=== PATIENT | female | born 1970 | race African-American/Black ===

== ENCOUNTER 2016-12-14 14:30 | Observation (INO) | payer OTHER, SELFPAY ==
[2016-12-14 15:02] LABS: Hematocrit 37.2 % (36.0-47.0); Mean Platelet Volume 7.6 fL (7.4-10.4); Red Blood Cell (RBC) Count 5.08 mill/uL (4.20-5.40); White Blood Cell (WBC) Count 7.6 thou/uL (4.8-10.8)
--- NOTE | 2016-12-14 15:11 | RAD ---
PORTABLE CHEST 1 VIEW: Date: 12/14/16 Time: 1455 hours HISTORY: Chest pain. FINDINGS: Comparison made with exam of 09/14/16. The heart size is normal. The lungs are well expanded without focal areas of consolidation, pneumoth orax, or pleural effusions. IMPRESSION: No acute process. POS: [facility]
[2016-12-14 15:23] LABS: ALT (SGPT) 20 U/L (8-55); AST (SGOT) 17 U/L (5-34); Alkaline Phosphatase 63 U/L (40-150); Anion Gap 11 mmol/L (10-20); BUN (Urea Nitrogen) 8 mg/dL (7.0-18.7); Bilirubin, Total 0.4 mg/dL (0.2-1.2); CK (CPK) 226 U/L (29-168); Calc. Creatinine Clearance 0 mL/min (70-130); Calcium 9.3 mg/dL (7.8-10.44); Carbon Dioxide 25 mmol/L (22-29); Chloride 105 mmol/L (98-107); Estimated GFR-MDRD Greater than 90; Globulin 3.4 g/dL (2.4-3.5); Lipase 38 U/L (8-78); Protein, Total 7.2 g/dL (6.0-8.3)
[2016-12-14 15:24] LABS: #Eosinphils 0.2 thou/uL (0.0-0.7); #Lymphocytes 2.4 thou/uL (1.20-3.40); #Monocytes 0.6 thou/uL (0.11-0.59); #Neutrophils 4.4 thou/uL (1.40-6.50); %Basophils 0.5 % (0.0-1.0); %Eosinophils 2.7 % (0.0-10.0); %Monocytes 8.2 % (0.0-10.0); Anisocytosis SLIGHT = 6-15 cells (100X) (0-5/hpf); Hypochromia SLIGHT = 6-15 cells (100X) (0-5/hpf); Microcytosis SLIGHT = 6-15 cells (100X) (0-5/hpf)
[2016-12-14 15:25] LABS: Bilirubin Negative (Negative); Blood, Urine Trace (Negative); Glucose, Urine (Dipstick) Negative (Negative); Ketone, Urine Negative (Negative); Nitrite Negative (Negative); Protein, Urine (Dipstick) Negative (Neg-Trace); Urobilinogen 0.2 mg/dL (0.2-1.0)
[2016-12-14 15:28] LABS: Troponin I Less than 0.010 ng/mL (< 0.028)
[2016-12-14] MEDS ORDERED: Nitroglycerin 0.4 MG TAB (25 Tab Bottle) ONE (15:29)
[2016-12-14] MEDS ORDERED: Lidocaine 2% Viscous Solution 20 ML, Aluminum & Magnesium Hydroxide 30 ML, Donnatal Eli... SSW SCH ×3 (15:30)
[2016-12-14 15:39] LABS: RBC/HPF 0-3 HPF (0-3); WBC/HPF 0-3 HPF (0-3)
[2016-12-14 15:40] LABS: Bacteria/HPF 2+ HPF (None Seen); Hyaline Casts/LPF NONE SEEN LPF (0-3 Hyaline); Squamous Epithelial 0-3 HPF (0-3)
[2016-12-14] MEDS ORDERED: Mag-Al 1200 mg/1200 mg/30 ML UDCUP PO PRN (16:05)
[2016-12-14] MEDS ORDERED: Ondansetron HCl/PF 4 MG/2 ML Vial IVP PRN (16:05)
[2016-12-14] MEDS ORDERED: cloNIDine HCl 0.1 MG TAB PO PRN (16:05)
[2016-12-14] MEDS ORDERED: Lorazepam 1 MG TAB PO PRN (16:05)
[2016-12-14] MEDS ORDERED: Senokot 8.6 MG TAB PO PRN ×2 (16:05)
[2016-12-14] MEDS ORDERED: Benzonatate 100 MG CAP PO PRN (16:05)
[2016-12-14] MEDS ORDERED: Calcium Carbonate 500 MG ChewTAB PO PRN (16:05)
[2016-12-14] MEDS ORDERED: Diabetic Tussin 200 MG/10 ML UDCUP PO PRN (16:05)
[2016-12-14] MEDS ORDERED: Loratadine 10 MG TAB PO PRN (16:05)
[2016-12-14] MEDS ORDERED: Bisacodyl 5 MG TAB PO PRN ×2 (16:05)
[2016-12-14] MEDS ORDERED: Acetaminophen 325 MG TAB PO PRN (16:05)
[2016-12-14] MEDS ORDERED: Nitroglycerin 0.4 MG TAB (25 Tab Bottle) PO PRN (16:05)
[2016-12-14] MEDS ORDERED: Dextrose 50% Abboject 50 ML SYRINGE SLOW IVP PRN (16:10)
[2016-12-14] MEDS ORDERED: HumaLOG 300 UNITS/3 ML VIAL SC PRN ×2 (16:10)
[2016-12-14] MEDS ORDERED: Dextrose 5% in Water 1,000 ML IV PRN (16:10)
[2016-12-14 17:08] LABS: Iron 64 ug/dL (50-170)
[2016-12-14 17:32] VITALS: BMI 32.0
[2016-12-14 18:37] LABS: Troponin I 0.012 ng/mL (< 0.028)
--- NOTE | 2016-12-14 20:38 | HP ---
DATE OF ADMISSION: 12/14/2016 PRIMARY CARE PHYSICIAN: Denia Mauro NP CHIEF COMPLAINT: Chest pain for 1 month on and off. HISTORY OF PRESENT ILLNESS: Ms. Lipscomb is a pleasant 46-year-old -Mongolian female with pas t medical history of hypertension, dyslipidemia, and borderline diabetes who presented to the emerge ncy room with the above-mentioned complaint. History is mainly obtained by the patient herself and the electronic medical records have been reviewed. The patient was last seen in our facility 2 year s ago for similar complaints and underwent a nuclear medicine stress test which showed EF of 83% and no evidence of ischemia. Ms. Lipscomb reports that she has been having a sharp squeezing pain, 10/10 in intensity on and off for almost a month now. She cannot recall any exacerbating or relieving factors. It can come on at rest also. She has taken aspirin in the home for this without any benefit. It is associated with some dizziness and diaphoresis, but no shortness of breath or palpitations. It is located in the le ft anterior chest without any radiation. It is not associated with arm or jaw claudication. She de nies any recent travel. She denies any recent illnesses or trauma. She does report repeatedly bein g under significant stress. She just received report this morning that one of her aunts has less th an in 2 weeks to live. She reports that she has with a cardiac catheterization done in 2010, which was normal. She also reported that she had some kind of imaging done last year at work and was told that she has some plaque in the left side of her cardiac blood vessel. In the emergency room upon presentation, she was hemodynamically stable. Her initial cardiac enzyme s were normal. Her EKG was unremarkable with normal sinus rhythm and no acute ST or T-wave changes. She was given nitroglycerin as well as aspirin in the Emergency Room along with GI cocktail and is now being admitted for further workup for acute coronary syndrome rule out. The patient does report lot of heart burn. She is currently on any antacid at home. She denies any abdominal pain, hematochezia, or melena. She denies any dysuria, hematuria or frequency. She does reports some decreased urination in the last 4 or 3 days. The patient reports symptoms consistent with menopause with heavy bleeding intermittently with no bl eeding at all. She denies any chances of her being at this time. She has a followup appoi ntment with [facility] up coming in next few months. PAST MEDICAL HISTORY: 1. Hypertension. 2. Dyslipidemia. 3. Diet controlled diabetes mellitus. 4. History of asthma. PAST SURGICAL HISTORY: Tubal ligation and cardiac catheterization in 2010. FAMILY HISTORY: Significant for hypertension in the mother. One of her grandmother and two of her aunts have had coronary artery disease. SOCIAL HISTORY: She is and is at bedside. No history of drug, tobacco or alcohol a buse. ALLERGIES: CODEINE causes nausea and a rash. CURRENT MEDICATIONS: She takes aspirin 81 mg daily and blood pressure and cholesterol medication, but is unclear as to which CODE STATUS: FULL code. Discussed with the patient. REVIEW OF SYSTEMS: The following complete review of systems was negative, unless otherwise mentione d in the HPI or below: Constitutional: Weight loss or gain, ability to conduct usual activities. Skin: Rash, itching. Eyes: Double vision, pain. ENT/Mouth: Nose bleeding, neck stiffness, pain, tenderness. Cardiovascular: Palpitations, dyspnea on exertion, orthopnea. Respiratory: Shortness of breath, wheezing, cough, hemoptysis, fever or night sweats. Gastrointestinal: Poor appetite, abdominal pain, heartburn, nausea, vomiting, constipation, or diar janeth. Genitourinary: Urgency, frequency, dysuria, nocturia. Musculoskeletal: Pain, swelling. Neurologic/Psychiatric: Anxiety, depression. Allergy/Immunologic: Skin rash, bleeding tendency. LABORATORY DATA AND IMAGINGS: Her CBC shows WBCs at 7.6 with 57% neutrophils. Hemoglobin is 11.4 w ith a low MCV and MCH. Platelet count 306,000. D-dimer is less than 0.27. Serum chemistries unrem arkable except for creatinine kinase mildly elevated at 226. Cardiac enzymes negative x1. BNP norm al. Lipid panel and lipase are normal. Urinalysis showed trace leukocyte esterase and +2 bacteria. Chest x-ray by my review has no evidence of pleural effusion, edema or infiltrate. A 12-lead EKG by my review shows normal sinus rhythm without any acute ST or T-wave changes to suggest ACS. PHYSICAL EXAMINATION: VITAL SIGNS: Upon presentation include blood pressure 144/81, pulse of 62, saturating 100% on room air, respirations 17, temperature 98.5. GENERAL: In no acute distress, awake, alert, oriented x3. She is well-built and well dressed and v pauline pleasant. HEENT EXAMINATION: Mucous membrane is moist and pink. Head is normocephalic, atraumatic. Pupils e qual, reactive to light and accommodation. Extraocular muscles are intact. NECK: Supple without any lymphadenopathy, JVD or bruit. CHEST: Clear to auscultation without any wheezing, rales or rhonchi. CARDIOVASCULAR: Rate rhythm is regular without any murmur, rubs or gallops. She is nontender to pa lpation on the anterior chest. ABDOMEN: Slightly obese, soft, nontender, nondistended with positive bowel sounds. She does not cas[place] ve any right upper quadrant tenderness or flank tenderness. EXTREMITIES: Free of any cyanosis, clubbing, or edema. PSYCHIATRY EXAMINATION: She appears anxious at this time and easily tearful. NEUROLOGIC EXAMINATION: Nonfocal. SKIN: Free of any rashes or bruises. Feels warm and dry to touch. IMPRESSION AND PLAN: 1. Chest pain. The patient has multiple risk factors including family history of diabetes, hyperte nsion, and dyslipidemia. D-dimer has been negative, so pulmonary embolus possibility is very low; a lmost entirely ruled out. I think her symptoms are more consistent with heartburn along with the st ress. However, given the multiple risk factors, we will admit her overnight in the hospital and do serial cardiac enzymes and telemetry monitoring. We will repeat the stress test in the morning. I do not feel that this is unstable angina. We will give her a trial of proton pump inhibitor to see if the symptoms are improved. If her stress test is abnormal or if her chest pain does not go away: We will consider Cardiology consultation in the morning. 2. Urinary tract infection. The patient seems to be having early urinary tract infection and is mi ldly symptomatic. She will be treated with oral antibiotics and we will send the urine for culture. Test urine for also. 3. Iron deficiency anemia, most likely she is deficient in the iron with heavy perimenopausal sympt oms. We will check iron indices and start her on supplementation as necessary. 4. Dyslipidemia. Her lipid panel is pretty much normal today. She will continue to take her medic ations that she takes at home. 5. Hypertension. Blood pressure is under well control today. We will add p.r.n. antihypertensives and resume her home medications once confirmed. 6. Code status: FULL code. Discussed with the patient. 7. Add p.r.n. medication ordered and deep venous thrombosis and gastrointestinal prophylaxis. DISPOSITION: The patient is being admitted for ACS workup. She also seems to have early UTI. Furt her management will depend upon her clinical course.
[2016-12-14 21:27] LABS: Troponin I Less than 0.010 ng/mL (< 0.028)
[2016-12-15 05:51] LABS: #Eosinphils 0.2 thou/uL (0.0-0.7); #Lymphocytes 2.6 thou/uL (1.20-3.40); #Monocytes 0.5 thou/uL (0.11-0.59); #Neutrophils 3.7 thou/uL (1.40-6.50); %Basophils 0.5 % (0.0-1.0); %Eosinophils 2.6 % (0.0-10.0); %Lymphocytes 36.9 % (21.0-51.0); %Monocytes 7.3 % (0.0-10.0); Hematocrit 36.4 % (36.0-47.0); Mean Platelet Volume 8.7 fL (7.4-10.4); Red Blood Cell (RBC) Count 4.92 mill/uL (4.20-5.40)
[2016-12-15 06:16] LABS: Anion Gap 12 mmol/L (10-20); BUN (Urea Nitrogen) 9 mg/dL (7.0-18.7); Calc. Creatinine Clearance 125 mL/min (70-130); Carbon Dioxide 21 mmol/L (22-29); Chloride 107 mmol/L (98-107); Estimated GFR-MDRD Greater than 90
[2016-12-15] MEDS ORDERED: Enoxaparin Sodium 40 MG/0.4 ML SYRINGE SC SCH (09:00)
[2016-12-15] MEDS ORDERED: Aspirin 325 MG TAB PO SCH (09:00)
[2016-12-15] MEDS ORDERED: Lisinopril 5 MG TAB PO SCH (09:00)
--- NOTE | 2016-12-15 14:22 | DIS ---
DATE OF ADMISSION: 12/14/2016 DATE OF DISCHARGE: 12/15/2016 PRIMARY CARE PHYSICIAN: Denia Mauro, Family nurse practitioner. DISCHARGE DISPOSITION: Home. PRIMARY DISCHARGE DIAGNOSIS: Chest pain, ruled out acute coronary syndrome. SECONDARY DISCHARGE DIAGNOSES: Obesity with BMI 32, dyslipidemia, asthma. PRIMARY PROCEDURE/OPERATION: None. RADIOLOGICAL INVESTIGATION: Chest x-ray normal. Stress test negative for any ischemia. SIGNIFICANT LABORATORY DATA: WBC 7.0, hemoglobin 11.3, platelets 254. D-dimer less than 0.27. Sod ium 136, potassium 4.2, BUN 9, creatinine 0.69, calcium 9.0. Cardiac enzymes negative x3. LDL 94. Urinalysis: Leukocyte esterase trace. Urine culture negative. test negative. DISCHARGE MEDICATIONS: ProAir HFA 2 puffs q.6 hourly p.r.n., aspirin 81 mg p.o. daily, Lipitor 20 m g p.o. at bedtime, Pepcid 20 mg p.o. b.i.d. CONTRAINDICATIONS: None. CODE STATUS: FULL CODE. INPATIENT CONSULTANTS: None. ALLERGIES: CODEINE. DISCHARGE PLAN: Post hospital, the patient will follow up with primary care physician in 1 week. HOSPITAL COURSE: The patient is a 46-year-old female who was admitted by Dr. Carlton yesterday, ple ase see her H\T\P for further details. This patient came to the emergency room for chest pain for 1 month on and off. Based on her description, patient's chest pain was not cardiac in nature. There was concern of underlying acid reflux, but to rule out acute coronary syndrome, this patient was ad mitted to observation unit and we did serial cardiac enzyme and that were negative. Her EKG on admi ssion was also normal sinus rhythm without any ischemic changes. Her chest x-ray was normal. The p atient was admitted to telemetry floor and subsequent cardiac enzymes remained negative. Patient wa s also asymptomatic while in hospital. While in the hospital, her diabetes was also well controlled with diet. During this admission, blood pressure was running on the lower side and that is why hyd rochlorothiazide was advised to kept on hold and see primary care physician for further adjustment o f blood pressure medication. As we are suspecting acid reflux and that is why we are considering Pe pcid on discharge. Patient had suspected urinary tract infections and that is why levofloxacin was given, but as cultur es remain negative and patient does not have any further symptoms of UTI that is why antibiotic ther apy was not given. The patient is seen and examined today. All test results discussed with the patient in detail. The patient is medically stable for discharge. PHYSICAL EXAMINATION: VITAL SIGNS: Currently, temperature 98.0, pulse 67, respiratory rate 16, saturation 98%, blood pres sure 122/67, weight 175 pounds. GENERAL: The patient is currently alert, awake, no acute distress. HEAD: Normocephalic, atraumatic. LUNGS: Clear. CARDIAC: S1, S2 regular without any murmur. ABDOMEN: Soft and benign. EXTREMITIES: No edema. NEUROLOGIC: Nonfocal examination.
--- NOTE | 2016-12-15 14:38 | NM ---
CARDIAC SPECT: CLINICAL HISTORY: 46-year-old female with chest pain, hypertension, diabetes, asthma, and dyslipidemia. Family history of coronary artery disease. TECHNIQUE: A myocardial perfusion scan was performed using the single isotope one day protocol with technetium- 99m sestamibi. 10 mCi were injected intravenously for the rest exam followed by 30 mCi for the stres s exam. Pharmacologic stress with Lexiscan was monitored and interpreted by Dr. Dos Santos. FINDINGS: Homogeneous tracer distribution is seen in the myocardial segments on stress and rest images without fixed or reversible defects. GATED SPECT LVEF: 76%. WALL MOTION EXAM: Normal. IMPRESSION: Normal myocardial perfusion scan. POS: [facility]
[2016-12-15 15:40] VITALS: BP 134/69; TEMP 98.7
[2016-12-15] MEDS ORDERED: Regadenoson 0.4 MG/5 ML SYRINGE ONE (16:18)
[2016-12-15] MEDS ORDERED: Atorvastatin Calcium 20 MG TAB PO SCH (21:00)
== END 2016-12-15 17:45 | disposition home or self-care (01) ==
LOC: ERS 14:30 → 2NO 16:14 → INTOOBSV 16:14 → 2NO 17:15
PROVIDERS: ADMIT Internal Medicine; ATTEND Internal Medicine
DX: R07.9 Chest pain, unspecified (principal); E66.9 Obesity, unspecified; E78.5 Hyperlipidemia, unspecified; J45.909 Unspecified asthma, uncomplicated; R12 Heartburn; D50.9 Iron deficiency anemia, unspecified; R73.03 Prediabetes; Z68.32 Body mass index [BMI] 32.0-32.9, adult; Z79.82 Long term (current) use of aspirin; Z79.899 Other long term (current) drug therapy; Z88.5 Allergy status to narcotic agent; Z98.51 Tubal ligation status; Z87.891 Personal history of nicotine dependence
CPT/HCPCS: 36415; 36416; 71010; 78452; 80048; 80053; 80061; 81003; 81015; 81025; 82550; 82553; 83540; 83550; 83690; 83880; 84484; 85025; 85379; 87086; 93005; 93017; 94760; 96372; 96374; A9500; G0378; J1650; J2405; J2785

== ENCOUNTER 2017-03-28 07:50 | Outpatient (CLI) | payer OTHER | END 2017-03-28 07:51 | disposition home or self-care (01) | LOC: BICMAMMO 07:50 | PROVIDERS: ATTEND Nurse Practitioner Family | DX: Z12.31 Encounter for screening mammogram for malignant neoplasm of breast (principal); R92.1 Mammographic calcification found on diagnostic imaging of breast | CPT/HCPCS: 77063; 77067 ==

== ENCOUNTER 2017-04-09 10:30 | Outpatient (CLI) | payer OTHER | END 2017-04-09 10:31 | disposition home or self-care (01) | LOC: BICMAMMO 10:30 | PROVIDERS: ATTEND Nurse Practitioner Family | DX: Z12.31 Encounter for screening mammogram for malignant neoplasm of breast (principal); R92.1 Mammographic calcification found on diagnostic imaging of breast | CPT/HCPCS: G0279 ==

== ENCOUNTER → 2017-04-19 | Day surgery (SDC) | payer OTHER ==
--- NOTE | 2017-04-19 11:21 | MMO ---
RIGHT BREAST STEREOTACTIC BIOPSY: Date: 04/19/17 INDICATION: Right breast calcifications with upper inner aspect of the right breast. COMPARISON: Prior diagnostic mammographic evaluation from [facility] dated 04/09/17. TECHNIQUE: Informed consent was obtained. Timeout was performed. The patient was placed prone on the stereotacti c breast table. The right breast was positioned. The cluster of calcifications within the upper inner aspect of the right breast were localized. Site overlying the region was prepped and draped in the u sual sterile fashion. Buffered 1% lidocaine was administered to the overlying subcutaneous tissues. A small incision was made. The stereotactic breast needle was guided into the skin. Pre-fire breast im ages were performed, demonstrating appropriate position of the needle in relationship to the calcific ations. The needle was then deployed. Post-fire images demonstrate the needle in the expected locatio n of the cluster of calcifications within the upper inner right breast. Sampling was performed in a 3 60 degree revolution. Six separate samples were obtained. Following obtaining of the specimen, the sp ecimen was sent to the mammographic suite to confirm the specimen containing branch service representative calcifica tions of the suspicious cluster. Upon confirmation that samples of the suspicious cluster were presen t within the specimen, a clip was deployed. Pressure was held at the biopsy site until hemostasis was obtained. The patient was sent to the mammographic suite for a follow-up right breast mammogram to c onfirm clip placement. IMPRESSION: BIRADS 4: Suspicious Abnormality Status post stereotactic right breast biopsy. Awaiting pathology results. POS: [facility]
--- NOTE | 2017-04-19 11:22 | MMO ---
RIGHT BREAST DIAGNOSTIC MAMMOGRAM: Date: 04/19/17 INDICATION: Post clip diagnostic mammograms. COMPARISON: Right breast diagnostic evaluation from [facility] dated 04/09/16. FINDINGS: There is resection cavity seen within the upper inner aspect of the right breast corresponding to the region of suspicious cluster of calcifications identified on diagnostic evaluation dated 04/09/17. B iopsy clip is seen within this region. IMPRESSION: BIRADS 4: Suspicious Abnormality Status post stereotactic biopsy of suspicious cluster of calcifications within the upper inner aspect of the right breast. A majority of the calcifications have been sampled. POS: [facility]
--- NOTE | 2017-04-19 11:25 | MMO ---
RIGHT BREAST STEREOTACTIC BREAST BIOPSY SURGICAL SPECIMEN RADIOGRAPH; Date: 04/19/17 INDICATION: Suspicious calcifications within the right breast upper inner quadrant. FINDINGS: The submitted specimens do demonstrate insurance healthcare representative calcifications of the suspicious cluster seen i n the upper inner aspect of the right breast on the diagnostic evaluation from [facility] ter dated 04/09/17. IMPRESSION: BIRADS 4: Suspicious Abnormality Status post stereotactic breast biopsy for suspicious cluster of calcifications within the upper inne r aspect of the right breast. The submitted specimens do contain insurance healthcare representative calcifications of the suspicious cluster. POS: [facility]
== END ==
LOC: MAMMO 07:47
PROVIDERS: ATTEND Nurse Practitioner Family
PROC: 0HBT3ZX Excision of Right Breast, Percutaneous Approach, Diagnostic (ICD-10-PCS; principal; 2017-04-19)
DX: N60.81 Other benign mammary dysplasias of right breast (principal); Z88.5 Allergy status to narcotic agent; I10 Essential (primary) hypertension; E78.5 Hyperlipidemia, unspecified; E11.9 Type 2 diabetes mellitus without complications; J45.909 Unspecified asthma, uncomplicated; Z98.890 Other specified postprocedural states
CPT/HCPCS: 19081; 76098; 88305; G0206-RT

== ENCOUNTER 2017-05-18 13:47 | Outpatient (CLI) | payer OTHER ==
[2017-05-18 15:05] LABS: ALT (SGPT) 20 U/L (8-55); AST (SGOT) 16 U/L (5-34); Albumin 3.8 g/dL (3.5-5.0); Alkaline Phosphatase 62 U/L (40-150); Anion Gap 9 mmol/L (10-20); BUN (Urea Nitrogen) 8 mg/dL (7.0-18.7); Bilirubin, Total 0.4 mg/dL (0.2-1.2); Calc. Creatinine Clearance 0 mL/min (70-130); Calcium 9.2 mg/dL (7.8-10.44); Carbon Dioxide 26 mmol/L (22-29); Chloride 107 mmol/L (98-107); Estimated GFR-MDRD Greater than 90; Globulin 3.3 g/dL (2.4-3.5); Glucose 118 mg/dL (70-105); Potassium 3.7 mmol/L (3.5-5.1); Protein, Total 7.1 g/dL (6.0-8.3); Sodium 138 mmol/L (136-145)
[2017-05-18 15:29] LABS: #Eosinphils 0.3 thou/uL (0.0-0.7); #Lymphocytes 3.4 thou/uL (1.20-3.40); #Monocytes 0.5 thou/uL (0.11-0.59); #Neutrophils 3.3 thou/uL (1.40-6.50); %Basophils 0.4 % (0.0-1.0); %Eosinophils 3.8 % (0.0-10.0); %Neutrophils 43.9 % (42.0-75.0); Hemoglobin 11.1 g/dL (12.0-16.0); MDiff Complete? YES; Mean Corpuscular HGB CONC 32.3 g/dL (32.0-36.0); Mean Corpuscular Hemoglobin 22.6 pg (27.0-31.0); Mean Platelet Volume 8.3 fL (7.4-10.4); Microcytosis SLIGHT = 6-15 cells (100X) (0-5/hpf); PLT Morphology Comment Appears Adequate; Platelet Count 267 thou/uL (130-400); RBC Distribution Width 16.2 % (11.5-14.5); Red Blood Cell (RBC) Count 4.91 mill/uL (4.20-5.40); White Blood Cell (WBC) Count 7.4 thou/uL (4.8-10.8)
== END 2017-05-18 13:48 | disposition home or self-care (01) ==
LOC: LABBT 13:47
PROVIDERS: ATTEND Surgery
DX: Z01.818 Encounter for other preprocedural examination (principal); N60.91 Unspecified benign mammary dysplasia of right breast
CPT/HCPCS: 80053; 85025; 93005; 93010

== ENCOUNTER 2017-05-23 06:43 | Day surgery (SDC) | payer OTHER ==
[2017-05-18 14:24] VITALS: BMI 31.6
[2017-05-23] MEDS ORDERED: CEFAZOLIN/Water 2 GM/20 ML SYRINGE ONE (09:15)
[2017-05-23] MEDS ORDERED: Bupivacaine/Epinephrine 0.25% 30 ML VIAL ONE (09:16)
[2017-05-23] MEDS ORDERED: Fentanyl 250 MCG/5 ML VIAL ONE (09:23)
--- NOTE | 2017-05-23 11:20 | OP ---
PREOPERATIVE DIAGNOSIS: Atypical ductal hyperplasia of the right breast. SURGEON: Francisco Rolle M.D. PROCEDURE PERFORMED: Right needle localization breast biopsy. INDICATIONS: This is a 47-year-old female who has had new cluster microcalcifications. She underwen t a core needle biopsy that came back atypical ductal hyperplasia. FINDINGS: The needle tip was placed far away from where the clip was and initial biopsy specimen rev ealed the needle, but no clip. Two other samples were obtained. Never got the clip. Attempted ultr asound of the area could not find the clip. Rather than doing a mastectomy, elected to abort at this time. PROCEDURE IN DETAIL: After informed consent was obtained, the patient was taken to the operating ron m. She has undergone placement of a localization needle in mammography. Her right breast was preppe d and draped in usual fashion. Local anesthesia infiltrated subcutaneously and deep after her breast was prepped and draped. A circumareolar incision was performed. The needle tract was palpable and a core of breast tissue was excised around the needle. The skin was from the breast tissue . The needle grasped and brought through the skin and then the rest of the needle tract was excised. The specimen was marked with anteromedial with the needle. A blue suture superior and a white sutu re lateral and sent to mammography. Radiologist called back and said do not see the clip. So, I exc ised a larger portion of tissue all the way down to the pectoralis fascia along this needle tract and more medially marked it again with black anterior, blue superior, white medial. This was again sent . No clip seen. So, I took wider margins of that area trying to find the clip. Also, I ultrasounde d the breast. I could not find the clip with intraoperative ultrasound. I ultrasounded the tissue t hat we removed did not see the clip rather than severely distorted her breast, we elected to abort th e procedure. Hemostasis achieved with electrocautery. The cavity was irrigated with saline. The cuenca bcutaneous reapproximated with interrupted 3-0 Vicryl. The skin closed with a running subcuticular 4 -0 Rapide. Steri-Strips applied. Sterile bandage applied. The patient tolerated the procedure well and was transferred to recovery in good condition. Sponge and needle count verified correct x2.
[2017-05-23] MEDS ORDERED: Promethazine HCl 25 MG/ML VIAL ONE (12:05)
[2017-05-23] MEDS ORDERED: Morphine 2 MG/ML SYRINGE ONE (12:12)
--- NOTE | 2017-05-23 13:40 | MMO ---
RIGHT BREAST NEEDLE LOCALIZATION: HISTORY: Status post right breast stereotactic biopsy. Needle localization is requested for surgical guidance . COMPARISON: 04/19/17. FINDINGS: Technically successful right breast needle localization. A 7 cm [place] needle wire adjacent to the bi opsy clip. Postprocedure images demonstrate appropriate positioning of the needle. Wire has been ap propriately deployed. TECHNIQUE: Consent was obtained for a right breast needle localizaiton for surgical guidance. The right breast was compressed in the mediolateral direction. The skin was prepped and draped in sterile fashion. 1 % Lidocaine, buffered with sodium bicarbonate was used for local anesthesia. Under mammographic guid ance, a 7 cm [place] needle was advanced such that the needle was adjacent to the clip. Needle positio n was confirmed in orhtopgonal planes. Wire was deployed. Post-deployment image was obtained. The patient tolerated the procedure well. No immediate or postprocedure complications. Films were marke d. Needle and wire secured to the patient. SPECIMEN RADIOGRAPH: Three separate specimens were obtained. The first specimen demonstrates a [place] wire. The clip is n ot present. The clip is not present on the remaining 2 specimens. Findings of each specimen were conveyed to Dr. Rolle upon preentation of the specimen. IMPRESSION: 1. Successful left breast needle localization. 2. Wire is present in the specimen; however, the clip is not appreciated. POS: [facility]
[2017-05-23] MEDS ORDERED: HYDROcodone/Acetaminophen 5/325 mg Tablet ONE (14:27)
[2017-05-23] MEDS ORDERED: Lidocaine 1% PF 5 ML VIAL ONE (14:53)
[2017-05-23] MEDS ORDERED: Ketorolac Tromethamine 30 MG/ML VIAL ONE (14:53)
[2017-05-23] MEDS ORDERED: Ondansetron HCl/PF 4 MG/2 ML Vial ONE (14:53)
[2017-05-23] MEDS ORDERED: Dexamethasone 20 MG/5 ML VIAL ONE (14:53)
[2017-05-23] MEDS ORDERED: Propofol 200 MG/20 ML VIAL ONE (14:53)
== END 2017-05-23 15:35 | disposition home or self-care (01) ==
LOC: SDC 06:43
PROVIDERS: ATTEND Surgery
PROC: 0HBT0ZX Excision of Right Breast, Open Approach, Diagnostic (ICD-10-PCS; principal; 2017-05-23)
DX: N60.91 Unspecified benign mammary dysplasia of right breast (principal); D24.1 Benign neoplasm of right breast; I10 Essential (primary) hypertension; E78.00 Pure hypercholesterolemia, unspecified; G43.909 Migraine, unspecified, not intractable, without status migrainosus; G40.909 Epilepsy, unspecified, not intractable, without status epilepticus; E78.5 Hyperlipidemia, unspecified; J45.909 Unspecified asthma, uncomplicated; E66.3 Overweight; Z68.31 Body mass index [BMI] 31.0-31.9, adult; Z79.82 Long term (current) use of aspirin; Z79.899 Other long term (current) drug therapy; Z88.5 Allergy status to narcotic agent; Z87.891 Personal history of nicotine dependence
CPT/HCPCS: 19281; 76098; 88307; 96374; 96375; J1100; J1885; J2001; J2270; J2405; J2550; J2704; J3010; J7620

== ENCOUNTER 2017-11-15 20:17 | Observation (INO) | payer OTHER ==
[2017-11-15 21:11] LABS: Hemoglobin 11.4 g/dL (12.0-16.0); Mean Corpuscular HGB CONC 32.8 g/dL (32.0-36.0); Mean Corpuscular Hemoglobin 22.3 pg (27.0-31.0); Mean Platelet Volume 8.7 fL (7.4-10.4); Platelet Count 252 thou/uL (130-400); RBC Distribution Width 16.4 % (11.5-14.5); Red Blood Cell (RBC) Count 5.09 mill/uL (4.20-5.40); White Blood Cell (WBC) Count 8.8 thou/uL (4.8-10.8)
--- NOTE | 2017-11-15 21:14 | RAD ---
CHEST ONE VIEW: 11/15/17 HISTORY: Chest pain. COMPARISON: 12/14/16. FINDINGS: The cardiac silhouette is magnified by projection. Pulmonary vasculature is slightly engorged. Medias tinum is midline. No lobar consolidation or evidence of pneumothorax. color television console monitor leads overlie t he chest. IMPRESSION: Mild pulmonary vascular congestion. POS: H
[2017-11-15 21:26] LABS: ALT (SGPT) 15 U/L (8-55); AST (SGOT) 15 U/L (5-34); Alkaline Phosphatase 70 U/L (40-150); Anion Gap 12 mmol/L (10-20); BUN (Urea Nitrogen) 10 mg/dL (7.0-18.7); Bilirubin, Total 0.7 mg/dL (0.2-1.2); CK (CPK) 195 U/L (29-168); Calc. Creatinine Clearance 0 mL/min (70-130); Carbon Dioxide 22 mmol/L (22-29); Chloride 105 mmol/L (98-107); Estimated GFR-MDRD Greater than 90; Globulin 3.7 g/dL (2.4-3.5); Glucose 95 mg/dL (70-105); Lipase 31 U/L (8-78); Potassium 3.9 mmol/L (3.5-5.1); Protein, Total 7.7 g/dL (6.0-8.3); Sodium 135 mmol/L (136-145)
[2017-11-15 21:27] LABS: Band 1 % (5-11); Eosinophils 2 % (0-10); Lymphocytes 12 % (21-51); MDiff Complete? YES; Microcytosis SLIGHT = 6-15 cells (100X) (0-5/hpf); Monocytes 7 % (0-10); Neutrophil 77 % (42-75); Reactive Lymphocytes 1 % (0-10)
[2017-11-15 21:28] LABS: CKMB 1.6 ng/mL (0-6.6); Troponin I Less than 0.010 ng/mL (< 0.028)
[2017-11-15 21:35] LABS: BHCG - Serum Negative (NEGATIVE); Pregs Control Background? CLEAR/WHITE (CLR/WHITE); Pregs Control Bar Appear? YES (CONTROL BAR)
[2017-11-15] MEDS ORDERED: diphenhydrAMINE 50 MG/ML VIAL ONE (21:48)
[2017-11-15] MEDS ORDERED: Metoclopramide HCl 10 MG/2 ML VIAL ONE (21:48)
--- NOTE | 2017-11-15 22:01 | CT ---
CT HEAD NONCONTRAST: 11/15/17 HISTORY: Seizure. COMPARISON: 11/12/14. FINDINGS: There is no evidence of acute intracranial hemorrhage or infarct. Ventricles appear normal in size, s hape and position. There is no mass effect or shift of midline structures. IMPRESSION: No acute intracranial abnormalities are demonstrated. POS: [facility]
[2017-11-15 22:45] LABS: Bilirubin Negative (Negative); Blood, Urine Large (Negative); Clarity CLEAR (Clear); Glucose, Urine (Dipstick) Negative (Negative); Leukocyte Negative (Negative); Nitrite Negative (Negative); Protein, Urine (Dipstick) Negative (Neg-Trace); Specific Gravity, Urine 1.008 (1.002-1.036); Urobilinogen 0.2 mg/dL (0.2-1.0)
[2017-11-15 22:47] LABS: Bacteria/HPF None Seen HPF (None Seen); Hyaline Casts/LPF 0-3 HYALINE CAST LPF (0-3 Hyaline); RBC/HPF GREATER THAN 50-TNTC HPF (0-3); Squamous Epithelial None Seen HPF (0-3); WBC/HPF 0-3 HPF (0-3)
[2017-11-15] MEDS ORDERED: Ondansetron HCl/PF 4 MG/2 ML Vial IVP PRN (23:49)
[2017-11-16 00:40] LABS: Troponin I Less than 0.010 ng/mL (< 0.028)
--- NOTE | 2017-11-16 01:15 | HP ---
PRIMARY CARE PHYSICIAN: Denia Mauro NP CODE STATUS: FULL CODE. TIME OF EVALUATION: 11:30 p.m. CHIEF COMPLAINT: Syncope. HISTORY OF PRESENT ILLNESS: This is a 47-year-old female patient with past medical history of high c holesterol; borderline hypertension, has been off medication since her blood pressure medications wer e dropping her blood pressure too much; also borderline diabetes, no specific treatment. She came to the hospital after having an episode of syncope when she was starting to drive in her driveway. The symptom started suddenly, lasted for a few seconds. No residual neurological damage was seen after the patient woke up. The patient's mentation was proper after she woke up. No clear triggers, impro mario alberto by itself. Symptoms were not severe. Witness reported that she had no shaking and no seizure-li ke activity. REVIEW OF SYSTEMS: Constitutional: No fever, chills, or generalized weakness. Respiratory: No cou gh, sputum production, or shortness of breath. Cardiovascular: No chest pain, palpitation, shortnes s of breath. Gastrointestinal: No nausea. No vomiting, diarrhea, or abdominal pain. Central nervo us system: The patient had a syncopal episode with no prodromic symptoms. No headache or feeling li ghtheaded. Genitourinary: No burning on urination. Extremities: No leg swelling. All other syste ms were reviewed and negative except for the findings mentioned above. PAST MEDICAL HISTORY: As mentioned in HPI. PAST SURGICAL HISTORY: The patient had a negative cardiac catheterization in 2010. PAST SURGICAL HISTORY: Tubal ligation, abnormal cells removed from right breast. She reported that she had no cancer. PSYCHIATRIC HISTORY: Anxiety. SOCIAL HISTORY: The patient lives with family. Secondhand smoke from her . Drinks socially occasionally. No drug use. No smoking history. The patient drinks every day. ALLERGIES: CODEINE. MEDICATIONS: Aspirin, atorvastatin. PHYSICAL EXAMINATION: VITAL SIGNS: On presentation, blood pressure 149/79 with heart rate 71, respiratory rate was 18, tem perature 99.1. Pain was 8/10 with a headache. GENERAL APPEARANCE: The patient was met at bedside. She was feeling comfortable, no acute distress. HEENT: Eyes, normal conjunctivae. Moist oral mucosa. Anicteric. NECK: No JVD. RESPIRATORY: Bilateral air entry. No rales, no wheezing. Symmetric expansion. CARDIOVASCULAR: Normal rate, regular rhythm. No murmurs, no gallop, no edema. ABDOMEN: Soft. Normal bowel sounds. MUSCULOSKELETAL: Baseline range of motion and strength. No tenderness. SKIN: Warm and intact. No pallor, no rash, no redness. Peripheral pulses are present. Capillary r efill seems to be intact. NEUROLOGIC: Baseline sensorium. No evidence of any new focal weakness. Baseline speech. Cranial n erves seem to be intact. PSYCHIATRIC: The patient is in good mood. No anxiety. Oriented with optimal judgment. EKG was reviewed. The patient has normal sinus rhythm at a rate of 71 with TX 154, QRS 78, QT correc kaden 445. Chest x-ray: Mild pulmonary vascular congestion. Brain CT: No acute intracranial abnorma lities are demonstrated. LABORATORY DATA: Reviewed. White count 8.8, hemoglobin 11.4, platelet count 252. Chemistry: Sodiu m 135, potassium 3.9, chloride 105, carbon dioxide 22, anion gap 12, BUN 10, creatinine 0.79, GFR gre ater than 90, glucose 95, calcium 9, total bilirubin 0.7, AST 15, ALT 15, alkaline phosphatase 70, CK 195. Troponin is less than 0.010. Beta-natriuretic peptide 11.8. Serum total protein 7.7, albumin 4, globulin 3.7, albumin globulin ratio is 1.1, lipase 31. Serum test was negative. UA w as negative except for some hematuria seen in urine. ASSESSMENT AND PLAN: The patient will be placed in the hospital with following medical problems: 1. Syncope, unclear etiology, by history seems to be cardiac related. No neuro findings have been r eported. We will do echo. We will monitor on tele. We will do carotid Doppler. Further management after workup results. 2. Hyponatremia, sodium 135. This is mild, no need for any acute intervention. We will monitor. W e will adjust treatment as needed. 3. Microcytic anemia. Hemoglobin 11.4. This is chronic. This can be addressed as outpatient. The re is some possible hematuria on the urine. The patient has no urinary symptoms. It can be monitore d. Kidney function is normal. CK is only 195. 4. Deep venous thrombosis prophylaxis. 5. Possible pulmonary congestion seen on chest x-ray. We will be doing echo in the morning. We cady l evaluate cardiac function by echo result. 6. Hyperlipidemia. Reconcile home medications. Low-cholesterol diet is advised.
[2017-11-16] MEDS: Acetaminophen 325 MG TAB PO PRN ×2 (01:30→09:05)
[2017-11-16 03:04] VITALS: BMI 30.6
[2017-11-16 03:36] LABS: #Eosinphils 0.3 thou/uL (0.0-0.7); #Lymphocytes 1.3 thou/uL (1.20-3.40); #Monocytes 0.5 thou/uL (0.11-0.59); %Basophils 0.1 % (0.0-1.0); %Eosinophils 4.9 % (0.0-10.0); %Lymphocytes 18.2 % (21.0-51.0); %Monocytes 7.6 % (0.0-10.0); %Neutrophils 69.2 % (42.0-75.0); Hemoglobin 10.3 g/dL (12.0-16.0); Mean Corpuscular HGB CONC 32.9 g/dL (32.0-36.0); Mean Corpuscular Hemoglobin 22.5 pg (27.0-31.0); Mean Corpuscular Volume 68.4 fL (78.0-98.0); Mean Platelet Volume 8.7 fL (7.4-10.4); Platelet Count 228 thou/uL (130-400); RBC Distribution Width 16.3 % (11.5-14.5); Red Blood Cell (RBC) Count 4.57 mill/uL (4.20-5.40); White Blood Cell (WBC) Count 7.2 thou/uL (4.8-10.8)
[2017-11-16 03:55] LABS: Anion Gap 10 mmol/L (10-20); BUN (Urea Nitrogen) 8 mg/dL (7.0-18.7); Calc. Creatinine Clearance 115 mL/min (70-130); Calcium 8.4 mg/dL (7.8-10.44); Carbon Dioxide 20 mmol/L (22-29); Chloride 110 mmol/L (98-107); Estimated GFR-MDRD Greater than 90; Glucose 101 mg/dL (70-105); Potassium 3.9 mmol/L (3.5-5.1); Sodium 136 mmol/L (136-145)
[2017-11-16 03:59] LABS: Troponin I Less than 0.010 ng/mL (< 0.028)
[2017-11-16] MEDS ORDERED: Enoxaparin Sodium 40 MG/0.4 ML SYRINGE SC SCH (09:00)
--- NOTE | 2017-11-16 09:12 | ULT ---
BILATERAL CAROTID DUPLEX ULTRASOUND: DATE: 11/16/17 HISTORY: Syncope. TECHNIQUE: D[place] Santos scale ultrasound with color flow and spectral Doppler imaging of the extracranial carotid artery systems performed. FINDINGS: No plaque formation or significant intimal wall thickening is seen on either side. The peak systolic velocity in the right ICA measures 109 cm/second with an end-diastolic velocity of 29 cm/second and a systolic ratio of 1.10. The peak systolic velocity in the left ICA measures 111 cm/second with an end-diastolic velocity of 3 3 cm/second and a systolic ratio of 0.90. Flow in both vertebral arteries remains antegrade. IMPRESSION: No evidence of hemodynamically significant stenosis. POS: OFF
[2017-11-16] MEDS ORDERED: Loperamide HCl 2 MG CAP PO PRN (10:07)
[2017-11-16] MEDS ORDERED: Mag-Al 1200 mg/1200 mg/30 ML UDCUP PO PRN (10:07)
[2017-11-16] MEDS ORDERED: Chloraseptic Spray 180 ml Bottle PO PRN (10:07)
[2017-11-16] MEDS ORDERED: hydrALAZINE 20 MG/ML VIAL SLOW IVP PRN (10:07)
[2017-11-16] MEDS ORDERED: Diabetic Tussin 200 MG/10 ML UDCUP PO PRN (10:07)
[2017-11-16] MEDS ORDERED: Loratadine 10 MG TAB PO PRN (10:07)
[2017-11-16] MEDS ORDERED: Famotidine 20 MG TAB PO PRN (10:07)
[2017-11-16] MEDS ORDERED: Senokot 8.6 MG TAB PO PRN (10:07)
[2017-11-16] MEDS ORDERED: Zolpidem Tartrate 5 MG TAB PO PRN (10:07)
[2017-11-16] MEDS ORDERED: Artificial Tear Sol 15 ML BOT EA EYE PRN (10:07)
[2017-11-16] MEDS ORDERED: Eucerin (Mineral Oil/Petrolatum,White) 30 gm Jar TOP PRN (10:07)
[2017-11-16] MEDS ORDERED: Sodium Chloride 0.65% Nasal 44 ML BOT EA NARE PRN (10:07)
[2017-11-16] MEDS ORDERED: Milk Of Magnesia 30 ML UDCUP PO PRN (10:07)
--- NOTE | 2017-11-16 10:21 | DIS ---
DATE OF ADMISSION: 11/15/2017 DATE OF DISCHARGE: 11/16/2017 PRIMARY CARE PHYSICIAN: Denia Mauro N.P. DISCHARGE DISPOSITION: Home. PRIMARY DISCHARGE DIAGNOSIS: Syncope, unexplained, unwitnessed. SECONDARY DISCHARGE DIAGNOSES: Mild intermittent asthma, dyslipidemia, microcytic anemia, dyslipidem ia, obesity with body mass index 30. PRIMARY PROCEDURE/OPERATION: None. RADIOLOGICAL INVESTIGATION: Carotid Doppler normal. CT brain normal. Chest x-ray unremarkable. SIGNIFICANT LABORATORIES: WBC 7.2, hemoglobin 10.3, platelet 228. Sodium 136, potassium 3.9, BUN 8, creatinine 0.71, calcium 8.4. Cardiac enzymes negative x3. LFT normal. CK 195, albumin 4.0, BNP 1 1.8. Urinalysis: RBC greater than 50 and blood large. TEST RESULTS PENDING ON DISCHARGE: Echocardiography. DISCHARGE PLAN: Post hospital, patient will follow up with primary care physician in 1 week. HOSPITAL COURSE: A 47-year-old -[place] female who was admitted by Dr. Shin. Please see his H&P for further detail. 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 Nobody witnessed and the patient did not have any cardiac symptoms before or after episode. Th ere was no seizure type of activity per patient. Patient was brought to ER and her electrocardiogram was normal. Her chest x-ray was normal. Her CT brain was negative. Patient was admitted to teleme try unit for observation. Carotid Doppler came back normal. Echocardiography done, result is pendin g. We are going to check orthostatic vitals to rule out orthostatic hypotension. At this point, her syncopal episode is unclear and unexplained. Her telemetry remained unremarkable. Once all investi gation came back negative, then we will consider discharging her home because she is feeling perfectl y normal and expressed wish to go home today. I advised her to take a low dose of aspirin as well as iron supplement. The patient is also advised to keep herself hydrated, given her elevated total CK. Her cardiac enzymes remain negative. Her microscopic hematuria was related with elevated total CK. Her chest x-ray showed some congestion, but it was artifact; clinically patient does not appear to be in congested. The patient is seen and examined at bedside today. Plan of care discussed with the family member. PHYSICAL EXAMINATION: VITAL SIGNS: Currently, temperature 98.5, pulse 68, respiratory rate 16, saturation 94% on room air, blood pressure 112/72, weight 167 pounds. GENERAL: The patient is currently alert, awake, no obvious acute distress. HEAD: Normocephalic, atraumatic. EYES: Pupils round, reactive to light. Extraocular muscle intact. ENT: Oropharynx within normal limits. Moist mucous membranes. No oral lesion, no pharyngeal erythe ma, no exudate. NECK: Supple, no JVD, no thyromegaly, no carotid bruit. No jugular venous distention. LUNGS: Clear to auscultation without any rhonchi or rales. CARDIAC: S1 and S2 regular without any murmur, no gallop, no rub. ABDOMEN: Soft, bowel sounds present, nontender, nondistended. No organomegaly, no mass, no suprapub ic tenderness. BACK: Examination unremarkable. No CVA tenderness. EXTREMITIES: Upper extremity range of motion is normal. Lower extremity, no edema. Good distal pul sation, no calf tenderness. NEUROLOGIC: Nonfocal examination. The patient is medically stable for discharge later on today.
--- NOTE | 2017-11-16 10:59 | PDOC.PN ---
- Subjective Encounter Start Date: 11/16/17 Encounter Start Time: 08:30 -: old records requested/rev Patient seen and examined. No new complaints. No overnight events - Objective Resuscitation Status: Resuscitation Status FULL:Full Resuscitation MAR Reviewed: Yes Vital Signs & Weight: Vital Signs (12 hours) Temp Pulse Resp BP BP BP BP 11/16/17 07:33 98.5 F 68 16 112/72 11/16/17 03:28 99 F 69 14 98/54 L 11/16/17 01:40 99.3 F 69 14 11/16/17 01:35 142/76 H 136/79 127/75 11/16/17 00:50 99.3 F 69 14 123/72 Pulse Ox 11/16/17 07:33 94 L 11/16/17 03:28 95 11/16/17 01:40 11/16/17 01:35 11/16/17 00:50 97 Weight Weight 167 lb 8 oz I&O: 11/15/17 11/16/17 11/17/17 06:59 06:59 06:59 Intake Total 50 Output Total 600 400 Balance -550 -400 Result Diagrams: 11/16/17 03:23 11/16/17 03:23 Radiology Reviewed by me: Yes EKG Reviewed by me: Yes Phys Exam - Physical Examination Constitutional: NAD HEENT: PERRLA, moist MMs, sclera anicteric Neck: no JVD, supple Respiratory: no wheezing, no rales, no rhonchi Cardiovascular: RRR, no significant murmur, no rub Gastrointestinal: soft, non-tender, no distention, positive bowel sounds Musculoskeletal: no edema, pulses present Neurological: non-focal, normal sensation, moves all 4 limbs Psychiatric: normal affect, A&O x 3 Skin: no rash, normal turgor Dx/Plan (1) Syncope Code(s): R55 - SYNCOPE AND COLLAPSE Status: Acute (2) Asthma Code(s): J45.909 - UNSPECIFIED ASTHMA, UNCOMPLICATED Status: Chronic (3) Dyslipidemia Code(s): E78.5 - HYPERLIPIDEMIA, UNSPECIFIED Status: Chronic (4) Microcytic anemia Code(s): D50.9 - IRON DEFICIENCY ANEMIA, UNSPECIFIED Status: Chronic (5) Obesity (BMI 30.0-34.9) Code(s): E66.9 - OBESITY, UNSPECIFIED Status: Chronic - Plan cont current plan of care, plan discussed w/ family * medication reviewed as below * symptomatic treatment * see my discharge nacho. Review of Systems - Review of Systems ENT: negative: Ear Pain, Ear Discharge, Nose Pain, Nose Discharge, Nose Congestion, Mouth Pain, Mouth Swelling, Throat Pain, Throat Swelling, Other Respiratory: negative: Cough, Dry, Shortness of Breath, Hemoptysis, SOB with Excertion, Pleuritic Pain, Sputum, Wheezing Cardiovascular: negative: chest pain, palpitations, orthopnea, paroxysmal nocturnal dyspnea, edema, light headedness, other Gastrointestinal: negative: Nausea, Vomiting, Abdominal Pain, Diarrhea, Constipation, Melena, Hematochezia, Other Genitourinary: negative: Dysuria, Frequency, Incontinence, Hematuria, Retention , Other Musculoskeletal: negative: Neck Pain, Shoulder Pain, Arm Pain, Back Pain, Hand Pain, Leg Pain, Foot Pain, Other Skin: negative: Rash, Lesions, Josue, Bruising, Other - Medications/Allergies Allergies/Adverse Reactions: Allergies Allergy/AdvReac Type Severity Reaction Status Date / Time codeine Allergy Verified 11/16/17 01:13 Medications: Current Medications Acetaminophen (Tylenol) 650 mg PO Q4H PRN PRN Reason: Headache/Fever or Pain Last Admin: 11/16/17 09:05 Dose: 650 mg Al Hydroxide/Mg Hydroxide (Maalox) 15 ml PO Q4H PRN PRN Reason: Heartburn or Indigestion Artificial Tears (Tears Renewed 15ml Bottle) 0 drop EA EYE PRN PRN PRN Reason: Dry Eyes Aspirin (Aspirin Chewable) 81 mg PO [facility] Last Admin: 11/16/17 09:05 Dose: 81 mg Atorvastatin Calcium (Lipitor) 20 mg PO [facility] Famotidine (Pepcid) 20 mg PO BIDPRN PRN PRN Reason: Heartburn or Indigestion Guaifenesin (Robitussin Sf) 200 mg PO Q4H PRN PRN Reason: Cough Hydralazine HCl (Apresoline) 10 mg SLOW IVP Q4H PRN PRN Reason: Systolic BP > 180 Loperamide HCl (Imodium) 2 mg PO PRN PRN PRN Reason: Diarrhea/Loose Stools Loratadine (Claritin) 10 mg PO DAILYPRN PRN PRN Reason: Sinus Symptoms Magnesium Hydroxide (Milk Of Magnesium) 30 ml PO DAILYPRN PRN PRN Reason: Constipation Mineral Oil/White Petrolatum (Eucerin Cream) 0 gm TOP BIDPRN PRN PRN Reason: Dry Skin Ondansetron HCl (Zofran) 4 mg IVP Q6H PRN PRN Reason: Nausea/Vomiting Phenol (Chloraseptic [place] 180 Ml Bot) 0 ml PO PRN PRN PRN Reason: Sore Throat Senna (Senokot) 2 tab PO HSPRN PRN PRN Reason: Constipation Sodium Chloride ([place] Nasal [place] 0.65%) 0 ml EA NARE QIDPRN PRN PRN Reason: Nasal Congestion Zolpidem Tartrate (Ambien) 5 mg PO HSPRN PRN PRN Reason: Insomnia
[2017-11-16 12:12] VITALS: BP 101/51; TEMP 98.9
[2017-11-16] MEDS ORDERED: Atorvastatin Calcium 20 MG TAB PO SCH (21:00)
== END 2017-11-16 13:09 | disposition home or self-care (01) ==
LOC: ERS 20:17 → 2SW 23:20 → UNDOADMOB 11-16 00:46
PROVIDERS: ADMIT Hospitalist; ATTEND Hospitalist
DX: R55 Syncope and collapse (principal); E78.00 Pure hypercholesterolemia, unspecified; R03.0 Elevated blood-pressure reading, without diagnosis of hypertension; R73.03 Prediabetes; F41.9 Anxiety disorder, unspecified; E87.1 Hypo-osmolality and hyponatremia; D50.9 Iron deficiency anemia, unspecified; E78.5 Hyperlipidemia, unspecified; J45.20 Mild intermittent asthma, uncomplicated; E66.9 Obesity, unspecified; Z68.30 Body mass index [BMI] 30.0-30.9, adult; Z77.22 Contact with and (suspected) exposure to environmental tobacco smoke (acute) (chronic); Z79.82 Long term (current) use of aspirin; Z79.899 Other long term (current) drug therapy; Z88.5 Allergy status to narcotic agent
CPT/HCPCS: 36415; 70450; 71045; 80048; 80053; 81003; 81015; 82553; 83690; 83880; 84484; 84703; 85025; 93005; 93306; 93880; 96365; 96372; 96375; G0378; J1200; J1650; J2765

== ENCOUNTER 2018-05-02 08:14 | Outpatient (CLI) | payer OTHER ==
--- NOTE | 2018-05-02 09:31 | ULT ---
RIGHT BREAST ULTRASOUND: History: Palpable mass in the upper outer aspect of the right breast and burning pain. The patient casanova d a previous right breast resection for atypical ductal hyperplasia. Comparison: Mammograms 05-02-18, 05-23-17, 04-19-17 Technique: Multiplanar grayscale and color doppler images were obtained in a targeted ultrasound of t he upper outer aspect of the right breast. FINDINGS: An anechoic cyst is seen at the 10 o'clock position of the right breast. This may or may not represen t the palpable abnormality. No suspicious mass or shadowing is seen in the right breast. IMPRESSION: BIRADS category 2 - benign findings. Annual screening mammography is recommended. POS: [facility]
== END 2018-05-02 08:15 | disposition home or self-care (01) ==
LOC: BICMAMMO 08:14
PROVIDERS: ATTEND Surgery
DX: N64.4 Mastodynia (principal); N62 Hypertrophy of breast; N63.10 Unspecified lump in the right breast, unspecified quadrant; Z80.3 Family history of malignant neoplasm of breast
CPT/HCPCS: 77066; G0279

== ENCOUNTER 2018-06-09 22:40 | Emergency (ER) | payer OTHER ==
[2018-06-10] MEDS ORDERED: diphenhydrAMINE 50 MG/ML VIAL ONE (03:06)
[2018-06-10] MEDS ORDERED: Ketorolac Tromethamine 30 MG/ML VIAL ONE (03:06)
[2018-06-10] MEDS ORDERED: Metoclopramide HCl 10 MG/2 ML VIAL ONE (03:06)
[2018-06-10] MEDS ORDERED: Ondansetron PF 4 MG/2 ML Vial ONE (03:30)
--- NOTE | 2018-06-10 08:43 | CT ---
PRELIMINARY REPORT/[facility]/EMERGENCY AFTER HOURS PROCEDURE: EXAM: CT Head Without Contrast EXAM DATE/TIME: 06/10/2018 3:02 AM CLINICAL HISTORY: 48 years old, female; Pain; Headache; Patient HX: PT reports at 2145 was at work and began to have so me confusion. She reports bad headache since yesterday morning. She reports episodes like this in the past due to not having enough rest. She reports another episode of confusion. PT reports sensitivity to light. PT denies nausea or vomiting TECHNIQUE: Imaging protocol: Axial computed tomography images of the head/brain without contrast. COMPARISON: No relevant prior studies available. FINDINGS: Brain: No brain edema. No intracranial hemorrhage. Bifrontal atrophy. Ventricles: Normal. No ventriculomegaly. Bones/joints: Unremarkable. No acute fracture. Sinuses: Near-complete opacification of the right sphenoid sinus may signify sinusitis. Mastoid air cells: Visualized mastoid air cells are unremarkable. No mastoid effusion. Orbits: Disconjugate gaze. Soft tissues: Unremarkable. IMPRESSION: 1. No acute brain findings. 2. Near-complete opacification of the right sphenoid sinus may signify sinusitis. 3. Bifrontal atrophy. Thank you for allowing us to participate in the care of your patient. Dictated and Authenticated by: Winston Guzman MD 06/10/2018 3:18 AM Central Time ([place] & [place]) FINAL REPORT EMERGENCY AFTER HOURS BRAIN CT WITHOUT IV CONTRAST: Date: 06/10/18 Time: 0304 hours FINDINGS/IMPRESSION: No significant acute process. Right sphenoid sinus mucosal disease. No significant change from . POS: [facility]
== END 2018-06-10 05:06 | disposition home or self-care (01) ==
LOC: ERS 22:40
DX: G43.909 Migraine, unspecified, not intractable, without status migrainosus (principal); J32.9 Chronic sinusitis, unspecified; E78.5 Hyperlipidemia, unspecified; I10 Essential (primary) hypertension; Z79.899 Other long term (current) drug therapy
CPT/HCPCS: 70450; 96365; 96375; J1200; J1885; J2405; J2765

== ENCOUNTER 2019-06-26 15:52 | Outpatient (CLI) | payer OTHER ==
--- NOTE | 2019-06-26 16:09 | RAD ---
EXAM: Chest PA and lateral: HISTORY: Shortness of breath COMPARISON: 06/28/2005, 11/15/2017 FINDINGS: Heart: Normal cardiac silhouette Aorta: Unremarkable Pulmonary vessels: Normal Costophrenic angles: Costophrenic angles are clear. Lungs: No consolidation or masses. There does appear to be patchy interstitial prominence. Pneumothorax: No pneumothorax Osseous structures: No osseous abnormalities IMPRESSION: Patchy interstitial prominence. Correlate for edema or interstitial infiltrate.
== END 2019-06-26 15:53 | disposition home or self-care (01) ==
LOC: BICRAD 15:52
PROVIDERS: ATTEND Physician Assistant
DX: R06.02 Shortness of breath (principal); R91.8 Other nonspecific abnormal finding of lung field
CPT/HCPCS: 71046; 80053; 82553; 83880; 84484; 85025; 85379

== ENCOUNTER 2019-09-26 09:44 | Observation (INO) | payer OTHER ==
--- NOTE | 2019-09-26 10:40 | RAD ---
Chest AP view INDICATION: Chest pain predominantly left-sided COMPARISON: June 26, 2019 FINDINGS: Lungs: The lungs are clear Cardiac silhouette: The cardiomediastinal silhouette appears within normal limits. Pulmonary vasculature: Normal Pleural spaces: No pleural effusion or pneumothorax is demonstrated. Upper abdomen: No abnormality seen. Osseous structures: No acute osseous abnormality. Additional findings: None. IMPRESSION: No acute cardiopulmonary abnormality.
[2019-09-26 10:43] LABS: Mean Corpuscular HGB CONC 32.3 g/dL (32.0-36.0); Mean Corpuscular Hemoglobin 23.5 pg (27.0-31.0); Mean Corpuscular Volume 72.8 fL (78.0-98.0); Mean Platelet Volume 8.6 fL (7.4-10.4); Platelet Count 282 thou/uL (130-400); RBC Distribution Width 15.6 % (11.5-14.5); Red Blood Cell (RBC) Count 5.12 mill/uL (4.20-5.40); White Blood Cell (WBC) Count 7.2 thou/uL (4.8-10.8)
[2019-09-26 10:52] LABS: ALT (SGPT) 36 U/L (8-55); AST (SGOT) 26 U/L (5-34); Albumin 3.9 g/dL (3.5-5.0); Alkaline Phosphatase 79 U/L (40-110); Anion Gap 10 mmol/L (10-20); BUN (Urea Nitrogen) 11 mg/dL (9.8-20.1); Bilirubin, Total 0.6 mg/dL (0.2-1.2); Calc. Creatinine Clearance 0 mL/min (70-130); Calcium 9.2 mg/dL (7.8-10.44); Carbon Dioxide 28 mmol/L (22-29); Chloride 107 mmol/L (98-107); Estimated GFR-MDRD Greater than 90; Globulin 3.6 g/dL (2.4-3.5); Glucose 100 mg/dL (70-105); Potassium 3.6 mmol/L (3.5-5.1); Protein, Total 7.5 g/dL (6.0-8.3); Sodium 141 mmol/L (136-145)
[2019-09-26 10:58] LABS: #Basophils 0.1 thou/uL (0.0-0.2); #Eosinphils 0.3 thou/uL (0.0-0.7); #Lymphocytes 2.9 thou/uL (1.20-3.40); #Monocytes 0.5 thou/uL (0.11-0.59); #Neutrophils 3.4 thou/uL (1.40-6.50); %Basophils 1.1 % (0.0-1.0); %Eosinophils 4.2 % (0.0-10.0); %Lymphocytes 40.4 % (21.0-51.0); %Monocytes 6.4 % (0.0-10.0); MDiff Complete? YES; Microcytosis SLIGHT = 6-15 cells (100X) (0-5/hpf); Platelet Morphology Comment Appears Adequate
[2019-09-26] MEDS ORDERED: Aspirin Chewable 81 MG TAB ONE (12:05)
[2019-09-26] MEDS ORDERED: Acetaminophen 325 MG TAB PO PRN (13:11)
[2019-09-26 13:41] VITALS: BMI 31.8
[2019-09-26 13:52] LABS: Troponin I Less than 0.010 ng/mL (< 0.028)
--- NOTE | 2019-09-26 15:24 | PDOC.HHP ---
Hospitalist HPI - History of Present Illness recurrent syncope, chest pain History of Present Illness: This is a 49 year old female with history of recurrent syncope, seizure who presented to the ER with chest pain. THe patient states that for the past few months she has been having constant chest pain, described as a fluttery sensation in her chest and a sensation of blood sinking in her chest. It does not radiate. She denies association with food. SHe denies pain with exertion. On occasion, when she gets the fluttery sensations in her chest she develops a severe headache and passes out shortly afterwards for a few minutes. Prior to passing out she has no olfactory or gustatory hallucinations, but has been told by her co-workers that she grabs on her to knees and her entire body locks up. SHe does not have tongue biting, arm jerking or urine incontinence. She is confused after she wakes up and states she feels drained for days. She also experiences short term memory loss after these episodes. She states for the past few months these syncopal episodes occurred once a week but now they have been occuring closer together. She had a televisit with Dr. Johnson who advised her to come to the hospital. She was supposed to get a loop recorder placed with him this month. She denies fevers, chills. She has an occasional dry cough and chronic runny nose on the right nostril. SHe reports a negative COVID test August 25 but subsequently had exposure to five co-workers who tested positive for COVID. SHe is a [employer]. The patient reports history of seizures in the past back in 2012. She states she was on dilantin for a year and it was eventually discontinued and she had no further seizures. When she was diagnosed with seizure, she stated that she had twitching on her face and tongue biting and would pass out. She had a positive EEG at the time but has not had any others ED Course: The patient presented with normal vitals with BP 159/81. Hospitalist ROS - Review of Systems Constitutional: denies: fever, chills Eyes: denies: vision change ENT: denies: ear pain, ear discharge Respiratory: reports: cough (occasional), shortness of breath Cardiovascular: reports: chest pain, palpitations. denies: orthopnea Gastrointestinal: denies: nausea, vomiting, abdominal pain, diarrhea Genitourinary: denies: dysuria, frequency Musculoskeletal: denies: neck pain, shoulder pain Neurological: denies: weakness, numbness - Medication Medications: Active Medications Generic Name Dose Route Start Last Admin Trade Name Freq PRN Reason Stop Dose Admin Acetaminophen 650 mg 09/26/19 13:11 09/26/19 14:24 Tylenol PO 09/26/19 23:00 650 mg Q4H PRN Administration Headache/Fever or Pain Hospitalist History - Past Medical History Other Medical History: Asthma Hyperlipidemia - Past Surgical History Other Surgical History: Cardiac cath 2011 RIght breast cells removed Hysterectomy - Family History Other Family History: Lung cancer in family Heart disease in grandmother at 72 Lupus in cousin Diabetes in family - Social History Smoking Status: Former smoker (Quit smoking 31 years ago, smoked from the age of 9. Smoked on weekends) Alcohol: reports: None Drugs: reports: none - Exam General Appearance: NAD, awake alert Eye: PERRL, anicteric sclera ENT: normocephalic atraumatic, no oropharyngeal lesions Neck: no JVD Heart: RRR, no murmur, no gallops, no rubs Respiratory: CTAB, no wheezes, no rales, no ronchi Gastrointestinal: soft, non-tender, non-distended, normal bowel sounds Extremities: no cyanosis, no clubbing, no edema Skin: normal turgor, no lesions, no rashes Neurological: cranial nerve grossly intact, normal sensation to touch, no focal deficits, no new deficit Musculoskeletal: normal tone, normal strength, no muscle wasting Hospitalist Results - Labs Result Diagrams: 09/26/19 10:12 09/26/19 10:12 Lab results: WBC 7.2 thou/uL (4.8-10.8) 09/26/19 10:12 Hgb 12.0 g/dL (12.0-16.0) 09/26/19 10:12 Hct 37.3 % (36.0-47.0) 09/26/19 10:12 MCV 72.8 fL (78.0-98.0) L 09/26/19 10:12 Plt Count 282 thou/uL (130-400) 09/26/19 10:12 Neutrophils % 48.0 % (42.0-75.0) 09/26/19 10:12 Sodium 141 mmol/L (136-145) 09/26/19 10:12 Potassium 3.6 mmol/L (3.5-5.1) 09/26/19 10:12 Chloride 107 mmol/L (98-107) 09/26/19 10:12 Carbon Dioxide 28 mmol/L (22-29) 09/26/19 10:12 BUN 11 mg/dL (9.8-20.1) 09/26/19 10:12 Creatinine 0.74 mg/dL (0.6-1.1) 09/26/19 10:12 Glucose 100 mg/dL (70-105) 09/26/19 10:12 Calcium 9.2 mg/dL (7.8-10.44) 09/26/19 10:12 Total Bilirubin 0.6 mg/dL (0.2-1.2) 09/26/19 10:12 AST 26 U/L (5-34) 09/26/19 10:12 ALT 36 U/L (8-55) 09/26/19 10:12 Alkaline Phosphatase 79 U/L (40-110) 09/26/19 10:12 Troponin I Less than 0.010 ng/mL (< 0.028) 09/26/19 13:20 Serum Total Protein 7.5 g/dL (6.0-8.3) 09/26/19 10:12 Albumin 3.9 g/dL (3.5-5.0) 09/26/19 10:12 - EKG Interpretation EKG: sinus bradycardia Hospitalist H&P A/P - Plan Plan: This is a 49 year old female with asthma presenting with chest pain and current syncope #Chest pain #Syncope - syncope possibly could be secondary to an arrhythmia given flutter sensations in her chest. Alternatively she could have seizure given that she has rigidity and postictal confusion during her episodes and has had seizures in the past - she will be monitored on telemetry - first two troponin negative, will check one more - EKG showed sinus bradycardia - will consult neurology and cardiology - continue aspirin - check orthostatics COVID exposure - pt reports 5 coworkers that tested postive for COVID - COVID test ordered Hypertension - continue imdur GERD - continue protonix Code status: full code
[2019-09-26] MEDS ORDERED: Nitroglycerin 0.4 MG TAB 1 EACH PO PRN (16:21)
[2019-09-26] MEDS ORDERED: Ondansetron PF 4 MG/2 ML Vial IVP PRN (16:21)
[2019-09-26 16:39] LABS: Troponin I Less than 0.010 ng/mL (< 0.028)
[2019-09-26] MEDS: Nitroglycerin 0.4 MG TAB (25 Tab Bottle) SL PRN ×2 (17:33→23:18)
--- NOTE | 2019-09-26 17:46 | CON ---
NEUROLOGY CONSULTATION DATE OF CONSULTATION: 09/26/2019 HISTORY OF PRESENT ILLNESS: Ms. Mary Lipscomb is a 49-year-old female with history significant for recurrent syncopal episodes and seizure disorder, presented to the emergency room with chest pain. Per patient, she is having chest pain with a feeling like flutter in the chest which radiates to her left arm; However, she has also been having episodes; during which has racing of the heart and she becomes extremely tired, weak, and loses of awareness, and it takes several days to get back to her baseline. The symptoms were characterized by extreme fatigue. Her coworkers have seen her whole-body locked up during this episode, but the patient denies any jerking, nausea, vomiting, urinary or fecal incontinence or tongue bite associated with these episode. She does have history of seizures in 2012. She had a one time seizure and was on Dilantin for one year; after which, she was tapered off. She was seen by a neurologist in [place], which she does not remember the name. The patient has been exposed to COVID by coworkers and currently, is a COVID rule out. She was admitted for evaluation of chest pain and recurrent syncopal episode. REVIEW OF SYSTEMS: All 14 systems were reviewed and were negative except the pertinent positive and negative mentioned in the HPI. MEDICATIONS: Tylenol p.r.n. PAST MEDICAL AND SURGICAL HISTORY: Asthma, hyperlipidemia, cardiac catheterization in 2010, and hysterectomy. FAMILY HISTORY: Significant for lung cancer, heart disease, diabetes, but no history of epilepsy. SOCIAL HISTORY: The patient quit smoking 31 years ago. Denies alcohol or illegal drug use. ALLERGIES: Codeine Active Medications Generic Name Dose Route Start Last Admin Trade Name Freq PRN Reason Stop Dose Admin Acetaminophen 650 mg 09/26/19 13:11 09/26/19 14:24 Tylenol PO 09/26/19 23:00 650 mg Q4H PRN Administration Headache/Fever or Pain PHYSICAL EXAMINATION: Blood pressure 140/80, pulse 80, and respiratory rate 18. General Appearance: NAD, awake alert Eye: PERRL, anicteric sclera ENT: normocephalic atraumatic, no oropharyngeal lesions Neck: no JVD Heart: RRR, no murmur, no gallops, no rubs Respiratory: CTAB, no wheezes, no rales, no rhonchi Gastrointestinal: soft, non-tender, non-distended, normal bowel sounds Extremities: no cyanosis, no clubbing, no edema Skin: normal turgor, no lesions, no rashes Neurological: Mental status, the patient is alert and oriented to person, place , and time. Recent and remote memory intact. Fund of knowledge is appropriate. Speech is clear. Cranial nerves 2 through 12 intact. Motor, muscle tone and bulk are normal. Strength 5/5 bilaterally. Sensory intact. Gait deferred due to the patient's safety reason. 09/26/19 10:12 Lab results: WBC 7.2 thou/uL (4.8-10.8) 09/26/19 10:12 Hgb 12.0 g/dL (12.0-16.0) 09/26/19 10:12 Hct 37.3 % (36.0-47.0) 09/26/19 10:12 MCV 72.8 fL (78.0-98.0) L 09/26/19 10:12 Plt Count 282 thou/uL (130-400) 09/26/19 10:12 Neutrophils % 48.0 % (42.0-75.0) 09/26/19 10:12 Sodium 141 mmol/L (136-145) 09/26/19 10:12 Potassium 3.6 mmol/L (3.5-5.1) 09/26/19 10:12 Chloride 107 mmol/L (98-107) 09/26/19 10:12 Carbon Dioxide 28 mmol/L (22-29) 09/26/19 10:12 BUN 11 mg/dL (9.8-20.1) 09/26/19 10:12 Creatinine 0.74 mg/dL (0.6-1.1) 09/26/19 10:12 Glucose 100 mg/dL (70-105) 09/26/19 10:12 Calcium 9.2 mg/dL (7.8-10.44) 09/26/19 10:12 Total Bilirubin 0.6 mg/dL (0.2-1.2) 09/26/19 10:12 AST 26 U/L (5-34) 09/26/19 10:12 ALT 36 U/L (8-55) 09/26/19 10:12 Alkaline Phosphatase 79 U/L (40-110) 09/26/19 10:12 Troponin I Less than 0.010 ng/mL (< 0.028) 09/26/19 13:20 Serum Total Protein 7.5 g/dL (6.0-8.3) 09/26/19 10:12 Albumin 3.9 g/dL (3.5-5.0) 09/26/19 10:12 - EKG Interpretation EKG: sinus bradycardia ASSESSMENT AND PLAN: Ms. Mary Lipscomb was consulted for episodes of recurrent syncope; however, the episodes described associated with racing of the heart and weakness and rigidity and altered awareness. She is having these episodes at least once a month or every other month. Consider MRI of the brain to rule out acute intracranial process. Recommend EEG to rule out underlying seizure activity. Observe seizure precaution. Continue medical management for chest pain per primary team and Radiology. Continue aspirin. Further testing will be done once the patient is ruled out for COVID. Further recommendations depend upon the results of the above testing. We will continue to follow. Thank you for the consult. Job ID: [id number] [facility]
[2019-09-26] MEDS: Atorvastatin Calcium 20 MG TAB PO SCH (20:03)
--- NOTE | 2019-09-26 23:35 | CON ---
DATE OF CONSULTATION: 09/26/2019 INDICATION FOR CONSULTATION: A 49-year-old female with possible syncopal episode. HISTORY OF PRESENT ILLNESS: This very pleasant 49-year-old female has been complaining of some episodes of possible seizures versus syncope, on close questioning of the patient, she has had no olivia syncopal episodes. She has not passed out. She has had a couple of these episodes witnessed, where she started rubbing her legs and then later on becomes like she is unresponsive to what is going on around her, but is not unconscious. She did have a history of seizures in the past and was placed on Dilantin I believe for about a year and then this was discontinued. These events occur infrequently. She was I believe scheduled to undergo a loop recorder next week with the thought that this could be an arrhythmias, but on close discussion with the patient, it does not appear to be that way. She did also tell me that she had some pain in her chest a couple days ago or yesterday with a sharp stabbing pain, which radiated down the left arm and these were also stabbing type pains, did not appear to be pressure in nature. She does have problems with blood pressure at times even this afternoon while I am seeing, her blood pressure is elevated, it was 175/102 and earlier on admission, the blood pressure was normal in the 120s systolically. She has also complained of having headaches sometimes prior to having the events and then not feeling well, but then she is confused after the event. She has had a workup in the past. She has had a cardiac catheterization in 2010 with normal coronary arteries. In 2019, in February, she had an echocardiogram, which showed a normal ejection fraction and a carotid evaluation also has been unremarkable. PAST MEDICAL HISTORY: Significant for hypertension, hyperlipidemia, history of anxiety, and history of asthma. She has a borderline diabetes. She has I believe a history of seizures in the past. She also has a history of tobacco abuse. She has had a bilateral tubal ligation. She had a total abdominal hysterectomy. She has had some abnormal tissue removed from the right breast. FAMILY HISTORY: Her mother from cancer, obviously she had lung cancer. Her father also is . She has had her son also has a history of seizures. SOCIAL HISTORY: She does not smoke. She has smoked like 30 years, but her smokes. She gets secondhand smoke. There is no significant alcohol use. ALLERGIES: SHE IS ALLERGIC TO CODEINE, WHICH CAUSES A RASH. MEDICATIONS: Please note her medication, she is on; 1. ProAir aerosol solutions one puff as needed every 4 hours. 2. She is on ferrous sulfate 325 mg a day. 3. Vitamin D tablets. 4. She is on vitamin C. 5. She takes atorvastatin 20 mg a day. 6. Aspirin 81 mg a day. 7. She is on pantoprazole 40 mg a day. 8. Isosorbide mononitrate 30 mg once a day. REVIEW OF SYSTEMS: A 12-point review of systems is relatively unremarkable except what is noted in the history of present illness. PHYSICAL EXAMINATION: GENERAL: Reveals a well-developed, well-nourished female, who is in no acute distress at this time. She is alert. She is oriented. VITAL SIGNS: Did show blood pressure 175/102. She does not appear to be orthostatic. This pressures were also checked and actually the pressure lying down was less than the one sitting or standing, which were consistently elevated. Her heart rate is 63 and regular. She is afebrile. O2 saturation 100% on room air and respiratory rate is 20. HEENT: Shows the head to be normocephalic and atraumatic. Carotid pulses are present. I did not hear any significant bruits. CHEST: Clear to auscultation without rales, rhonchi, or wheezing. CARDIOVASCULAR: Revealed a regular rate and rhythm. There were no significant murmurs, heaves, thrills, bruits, or rubs. ABDOMEN: Shows the abdomen to be obese. Positive bowel sounds are present. No organomegaly or tenderness noted. EXTREMITIES: Show no clubbing, cyanosis, or edema. Pedal pulses are present. NEUROLOGIC: At this time, the patient appears to be fully intact. SKIN: Warm and dry. PSYCHOSOCIAL: Also appears to be normal. LABORATORY DATA: Shows a WBC of 7.2, hemoglobin was 12, and platelet count was 282,000. Sodium is 141, potassium 3.6, BUN was 11, creatinine 0.74, blood sugar was 100. Cardiac enzymes are negative. EKG is also unremarkable. She has a normal sinus rhythm with a heart rate of 59 beats per minute. IMPRESSION AND PLAN: 1. A 49-year-old female with some type of the event, which actually appears to me to be more of a seizure type problem than actual syncope. She has not had any absolute olivia syncopal episodes and she does have confusion after the event. She will be monitored here on the floor. We will certainly consider whether or not to place a loop recorder. I believe she should have a neurological evaluation. Certainly could consider starting her back on her antiseizure medications and see whether her symptoms improve as she has been on medication in the past with a history of seizures and this has been stopped several years ago. 2. History of hypertension. We will need to start her on medications for her blood pressure. She was on isosorbide mononitrate. 3. History of dyslipidemia. She will continue on her medications in the form of atorvastatin. At this time, we will continue to monitor the patient, uncertain as to whether or not she has any acute events, whether she is having any syncopal episodes. Hopefully, she will have another event while being in the hospital we can witness this to see exactly what is going on from a cardiac standpoint. 4. History of atypical chest discomfort, chest pain with negative cardiac enzymes, normal EKG and normal coronaries in 2010. continue to monitor the patient. Thank you very much for asking us to participate in her care. Job ID: [id number]
[2019-09-27] MEDS: Cholecalciferol 1,000 UNITS (25 MCG) TAB PO SCH (08:25)
[2019-09-27] MEDS: Aspirin Chewable 81 MG TAB PO SCH (08:26)
[2019-09-27] MEDS: Ferrous Sulfate 325 MG TAB PO SCH (08:26)
[2019-09-27] MEDS: Isosorbide Dinitrate 20 MG TAB PO SCH (09:21)
--- NOTE | 2019-09-27 14:52 | PDOC.HOSPP ---
- Subjective Encounter Date: 09/27/19 Encounter Time: 14:51 Subjective: pt seen today, COVID result may not be available until 12th- talk to her at length over the phone. No CP today, but slight ALBRIGHT and hx of migraine and prefers not to take any medicine. - Objective Vital Signs & Weight: Vital Signs (12 hours) Temp Pulse Resp BP BP BP Pulse Ox 09/27/19 11:58 98.3 F 67 16 120/65 99 09/27/19 08:27 98.6 F 62 18 123/78 99 09/27/19 05:52 98.3 F 57 L 15 140/63 99 Weight Weight 174 lb I&O: 09/26/19 09/27/19 09/28/19 06:59 06:59 06:59 Intake Total 1560 Balance 1560 Result Diagrams: 09/26/19 10:12 09/26/19 10:12 Hospitalist ROS - Medication Medications: Active Medications Generic Name Dose Route Start Last Admin Trade Name Freq PRN Reason Stop Dose Admin Aspirin 81 mg 09/27/19 09:00 09/27/19 08:26 Aspirin Chewable PO 81 mg QAM NORMA Administration Atorvastatin Calcium 20 mg 09/26/19 21:00 09/26/19 20:03 Lipitor PO 20 mg HS NORMA Administration Cholecalciferol 1,000 units 09/27/19 09:00 09/27/19 08:25 Vitamin D3 PO 1,000 units DAILY NORMA Administration Ferrous Sulfate 325 mg 09/27/19 09:00 09/27/19 08:26 Feosol PO 325 mg DAILY NORMA Administration Isosorbide Dinitrate 30 mg 09/27/19 09:00 09/27/19 09:21 Isordil PO 30 mg DAILY NORMA Administration Nitroglycerin 0.4 mg 09/26/19 17:30 09/26/19 23:18 Nitrostat SL 0.4 mg Q5MIN PRN Administration Chest Pain Pantoprazole Sodium 40 mg 09/27/19 09:00 09/27/19 08:26 Protonix PO 40 mg DAILY NORMA Administration - Exam General Appearance: NAD, awake alert Neurological: no focal deficits Psychiatric: A&O x 3 Hosp A/P - Plan #Syncope with prodromal sxs of palipitations and weakness - syncope possibly could be secondary to an arrhythmia given flutter sensations in her chest. Alternatively she could have seizure given that she has rigidity and postictal confusion during her episodes and has had seizures in the past - she will be monitored on telemetry Ayptical CP - -ruled out for ACS; nl EKG -asa, lipitor and imdur - home regimen -cath in 2010- no obstruction. -cariology will follow up after COVID r/o hx of seizure -no AED as home regimen -pending COVID for workup Prob tension ALBRIGHT - tylenol prn COVID exposure - pt reports 5 coworkers that tested postive for COVID - COVID test ordered Hypertension - continue imdur GERD - continue protonix COVID result - tomorrow then cardiac workup, MRI and EEG.
[2019-09-27] MEDS ORDERED: Ondansetron ODT 4 MG TAB PO PRN (14:54)
[2019-09-27] MEDS ORDERED: Acetaminophen 325 MG TAB PO PRN (14:54)
--- NOTE | 2019-09-27 15:30 | PDOC.CPN ---
- Subjective Date: 09/27/19 Time: 15:34 Interval history: The pt seen and examined. No overnight events. No cardiac complaints. - Objective Allergies/Adverse Reactions: Allergies Allergy/AdvReac Type Severity Reaction Status Date / Time codeine Allergy Mild Rash Verified 09/26/19 13:34 Visit Medications: Current Medications Acetaminophen (Tylenol) 650 mg PO Q6H PRN PRN Reason: Headache/Fever or Pain Aspirin (Aspirin Chewable) 81 mg PO QAM [facility] Last Admin: 09/27/19 08:26 Dose: 81 mg Atorvastatin Calcium (Lipitor) 20 mg PO HS [facility] Last Admin: 09/26/19 20:03 Dose: 20 mg Cholecalciferol (Vitamin D3) 1,000 units PO DAILY [facility] Last Admin: 09/27/19 08:25 Dose: 1,000 units Ferrous Sulfate (Feosol) 325 mg PO DAILY [facility] Last Admin: 09/27/19 08:26 Dose: 325 mg Isosorbide Dinitrate (Isordil) 30 mg PO DAILY [facility] Last Admin: 09/27/19 09:21 Dose: 30 mg Nitroglycerin (Nitrostat) 0.4 mg SL Q5MIN PRN PRN Reason: Chest Pain Last Admin: 09/26/19 23:18 Dose: 0.4 mg Ondansetron HCl (Zofran) 4 mg IVP Q6H PRN PRN Reason: Nausea/Vomiting Ondansetron HCl (Zofran Odt) 4 mg PO Q6H PRN PRN Reason: Nausea/Vomiting Pantoprazole Sodium (Protonix) 40 mg PO DAILY [facility] Last Admin: 09/27/19 08:26 Dose: 40 mg Vital Signs & Weight: Vital Signs Temp Pulse Resp BP BP BP Pulse Ox 09/27/19 11:58 98.3 F 67 16 120/65 99 09/27/19 08:27 98.6 F 62 18 123/78 99 09/27/19 05:52 98.3 F 57 L 15 140/63 99 Weight 174 lb - Physical Exam General: alert & oriented x3 HEENT: mucus membranes moist Neck: supple neck Cardiac: regular rate and rhythm, S1/S2 Lungs: clear to auscultation Extremities: no edema - Labs Result Diagrams: 09/26/19 10:12 09/26/19 10:12 Troponin/CKMB Troponin I Less than 0.010 ng/mL (< 0.028) 09/26/19 16:05 - Telemetry Sinus rhythms and dysrhythmias: sinus rhythm - Assessment/Plan Assessment/Plan: 1. s/p the event of passing out 2/2 seizure vs syncopal episode - the pt is on tele which has not show any arrhythmia or pauses. 2. HTN - well controlled with current med 3. HLD - on statin 4. Atypical chest pain - asymptomatic for now 5. Hx of Sz? 6. Borderline DM 7. Hx of Asthma 8. COVID exposure MAR reviewed * waiting for COVID test result * Dr Johnson' pt
[2019-09-27] MEDS: Atorvastatin Calcium 20 MG TAB PO SCH (20:19)
[2019-09-27] MEDS: Nitroglycerin 0.4 MG TAB (25 Tab Bottle) SL PRN ×3 (23:00→23:15)
[2019-09-28] MEDS: Isosorbide Dinitrate 20 MG TAB PO SCH (08:03)
[2019-09-28] MEDS: Ferrous Sulfate 325 MG TAB PO SCH (08:03)
[2019-09-28] MEDS: Aspirin Chewable 81 MG TAB PO SCH (08:03)
[2019-09-28] MEDS: Cholecalciferol 1,000 UNITS (25 MCG) TAB PO SCH (08:03)
[2019-09-28 12:24] LABS: SARS-CoV-2 MS2 Positive; SARS-CoV-2 N Gene Negative; SARS-CoV-2 S Gene Negative; SARS-CoV-2 orf1ab Negative
--- NOTE | 2019-09-28 15:23 | PDOC.CPN ---
- Subjective Date: 09/28/19 Time: 15:25 Interval history: The pt seen and examined. No overnight events. No cardiac complaints. COVID 19 was negative - Objective Allergies/Adverse Reactions: Allergies Allergy/AdvReac Type Severity Reaction Status Date / Time codeine Allergy Mild Rash Verified 09/26/19 13:34 Visit Medications: Current Medications Acetaminophen (Tylenol) 650 mg PO Q6H PRN PRN Reason: Headache/Fever or Pain Last Admin: 09/27/19 16:02 Dose: 650 mg Aspirin (Aspirin Chewable) 81 mg PO QAM [facility] Last Admin: 09/28/19 08:03 Dose: 81 mg Atorvastatin Calcium (Lipitor) 20 mg PO HS [facility] Last Admin: 09/27/19 20:19 Dose: 20 mg Cholecalciferol (Vitamin D3) 1,000 units PO DAILY [facility] Last Admin: 09/28/19 08:03 Dose: 1,000 units Ferrous Sulfate (Feosol) 325 mg PO DAILY [facility] Last Admin: 09/28/19 08:03 Dose: 325 mg Isosorbide Dinitrate (Isordil) 30 mg PO DAILY [facility] Last Admin: 09/28/19 08:03 Dose: 30 mg Nitroglycerin (Nitrostat) 0.4 mg SL Q5MIN PRN PRN Reason: Chest Pain Last Admin: 09/27/19 23:15 Dose: 0.4 mg Ondansetron HCl (Zofran) 4 mg IVP Q6H PRN PRN Reason: Nausea/Vomiting Ondansetron HCl (Zofran Odt) 4 mg PO Q6H PRN PRN Reason: Nausea/Vomiting Pantoprazole Sodium (Protonix) 40 mg PO DAILY [facility] Last Admin: 09/28/19 08:03 Dose: 40 mg Vital Signs & Weight: Vital Signs Temp Pulse Resp BP BP BP Pulse Ox 09/28/19 11:58 98.3 F 79 18 109/79 99 09/28/19 08:03 98.3 F 62 18 147/73 H 99 09/28/19 04:25 98.5 F 59 L 20 121/66 100 Weight 174 lb - Physical Exam General: alert & oriented x3 HEENT: mucus membranes moist Neck: supple neck Cardiac: regular rate and rhythm, S1/S2 Lungs: clear to auscultation Extremities: no edema - Labs Result Diagrams: 09/26/19 10:12 09/26/19 10:12 Troponin/CKMB Troponin I Less than 0.010 ng/mL (< 0.028) 09/26/19 16:05 - Telemetry Sinus rhythms and dysrhythmias: sinus rhythm - Assessment/Plan Assessment/Plan: 1. s/p the event of passing out 2/2 seizure vs syncopal episode - the pt is on tele which has not show any arrhythmia or pauses. The pt would like to have LINQ during the hospital stay if possible. 2. HTN - Isosorbide was changed from Dinitrate qd to mononitirate qd (as her med list) 3. HLD - on statin 4. Atypical chest pain - asymptomatic for now 5. Hx of Sz? 6. Borderline DM 7. Hx of Asthma 8. COVID exposure MAR reviewed * COVID test was negative * Dr Johnson' pt
--- NOTE | 2019-09-28 15:57 | PDOC.HOSPP ---
- Subjective Encounter Date: 09/28/19 Encounter Time: 15:55 Subjective: pt seen after covid negative. says that she has chest soreness but no pain, happy w.. neg test for COVID. - Objective Vital Signs & Weight: Vital Signs (12 hours) Temp Pulse Resp BP BP BP Pulse Ox 09/28/19 11:58 98.3 F 79 18 109/79 99 09/28/19 08:03 98.3 F 62 18 147/73 H 99 09/28/19 04:25 98.5 F 59 L 20 121/66 100 Weight Weight 174 lb I&O: 09/27/19 09/28/19 09/29/19 06:59 06:59 06:59 Intake Total 1560 1520 Balance 1560 1520 Result Diagrams: 09/26/19 10:12 09/26/19 10:12 Hospitalist ROS - Medication Medications: Active Medications Generic Name Dose Route Start Last Admin Trade Name Freq PRN Reason Stop Dose Admin Acetaminophen 650 mg 09/27/19 14:54 09/27/19 16:02 Tylenol PO 650 mg Q6H PRN Administration Headache/Fever or Pain Aspirin 81 mg 09/27/19 09:00 09/28/19 08:03 Aspirin Chewable PO 81 mg QAM NORMA Administration Atorvastatin Calcium 20 mg 09/26/19 21:00 09/27/19 20:19 Lipitor PO 20 mg HS NORMA Administration Cholecalciferol 1,000 units 09/27/19 09:00 09/28/19 08:03 Vitamin D3 PO 1,000 units DAILY NORMA Administration Ferrous Sulfate 325 mg 09/27/19 09:00 09/28/19 08:03 Feosol PO 325 mg DAILY NORMA Administration Nitroglycerin 0.4 mg 09/26/19 17:30 09/27/19 23:15 Nitrostat SL 0.4 mg Q5MIN PRN Administration Chest Pain Pantoprazole Sodium 40 mg 09/27/19 09:00 09/28/19 08:03 Protonix PO 40 mg DAILY NORMA Administration - Exam General Appearance: NAD, awake alert Eye: PERRL ENT: normocephalic atraumatic Neck: supple Heart: RRR Respiratory: CTAB, normal chest expansion Gastrointestinal: soft, normal bowel sounds Neurological: no focal deficits Hosp A/P - Plan #Syncope with prodromal sxs of palipitations and weakness - syncope possibly could be secondary to an arrhythmia given flutter sensations in her chest. Alternatively she could have seizure given that she has rigidity and postictal confusion during her episodes and has had seizures in the past - she will be monitored on telemetry Ayptical CP - -ruled out for ACS; nl EKG -asa, lipitor and imdur - home regimen -cath in 2010- no obstruction. -cariology will follow up after COVID r/o hx of seizure -no AED as home regimen -pending COVID for workup Prob tension ALBRIGHT - tylenol prn COVID exposure - pt reports 5 coworkers that tested postive for COVID - COVID test ordered Hypertension - continue imdur GERD - continue protonix COVID result - neg LINQ monitor- cardiac workup, - MRI and EEG per neuro - ordered it. .
[2019-09-28] MEDS: Atorvastatin Calcium 20 MG TAB PO SCH (20:08)
[2019-09-28] MEDS ORDERED: Isosorbide Dinitrate 20 MG TAB PO SCH (21:00)
[2019-09-29] MEDS: Aspirin Chewable 81 MG TAB PO SCH (08:28)
[2019-09-29] MEDS: Cholecalciferol 1,000 UNITS (25 MCG) TAB PO SCH (08:28)
[2019-09-29] MEDS: Ferrous Sulfate 325 MG TAB PO SCH (08:29)
--- NOTE | 2019-09-29 09:28 | PRG ---
DATE OF SERVICE: 09/29/2019 SUBJECTIVE: Ms. Lipscomb is doing better. She has not had any recurrent episodes of syncope or presyncope. She has not had true syncope present. She does have a previous history of seizure disorder and was placed on antiseizure medication in 2010. She has subsequently been taken off. She feels like her symptoms are related to seizures. OBJECTIVE: VITAL SIGNS: Blood pressure 108/65, pulse 69, temperature 98.2. LUNGS: Clear to auscultation. HEART: Regular rate and rhythm. ABDOMEN: Soft, nontender, nondistended. EXTREMITIES: No edema. IMPRESSION: 1. Presyncope. 2. Musculoskeletal chest pain. RECOMMENDATIONS: Given previous history of a seizure disorder and no true syncope, her symptoms may likely be neurologic in nature. EEG is currently pending. She has had a normal stress study noted in the office. Otherwise, from my standpoint, I have no further recommendations. Plan is to follow up with Ms. Lipscomb this week in the office. I have no further recommendations. Given that she is now chest pain-free, no further episodes of syncope and a recent normal stress study. I did briefly discuss cholangiography with Ms. Lipscomb given her chest pain and abnormal stress study. She has deferred and does not feel this is cardiac in nature and is pleased with a normal stress study. She has otherwise been hematologically stable. Job ID: [id number]
[2019-09-29] MEDS ORDERED: levETIRAcetam 500 MG TAB PO SCH (11:30)
--- NOTE | 2019-09-29 12:53 | PDOC.HOSPP ---
- Subjective Encounter Date: 09/29/19 Subjective: NEUROLOGY PROGRESS NOTE Patient alert, awake and denies any acute complaints in the last 24 hours. - Objective Vital Signs & Weight: Vital Signs (12 hours) Temp Pulse Resp BP BP Pulse Ox 09/29/19 12:48 98.6 F 70 16 115/72 100 09/29/19 08:23 98.2 F 69 15 108/65 99 09/29/19 03:25 97.6 F 64 18 105/67 98 Weight Weight 174 lb I&O: 09/28/19 09/29/19 09/30/19 06:59 06:59 06:59 Intake Total 1520 490 Balance 1520 490 Result Diagrams: 09/26/19 10:12 09/26/19 10:12 Radiology Reviewed by me: Yes EKG Reviewed by me: Yes Hospitalist ROS - Review of Systems Constitutional: denies: fever, chills, sweats, weakness, malaise, other Eyes: denies: pain, vision change, conjunctivae inflammation, eyelid inflammation, redness, other ENT: denies: ear pain, ear discharge, nose pain, nose discharge, nose congestion , mouth pain, mouth swelling, throat pain, throat swelling, other Respiratory: denies: cough, dry, shortness of breath, hemoptysis, SOB with excertion, pleuritic pain, sputum, wheezing, other Cardiovascular: denies: chest pain, palpitations, orthopnea, paroxysmal noc. dyspnea, edema, light headedness, other Gastrointestinal: denies: nausea, vomiting, abdominal pain, diarrhea, constipation, melena, hematochezia, other Genitourinary: denies: dysuria, frequency, incontinence, hematuria, retention, other Musculoskeletal: denies: neck pain, shoulder pain, arm pain, back pain, hand pain, leg pain, foot pain, other Skin: denies: rash, lesions, nadege, bruising, other Neurological: reports: seizures. denies: weakness, numbness, incoordination, change in speech, confusion, other - Medication Medications: Active Medications Generic Name Dose Route Start Last Admin Trade Name Freq PRN Reason Stop Dose Admin Acetaminophen 650 mg 09/27/19 14:54 09/27/19 16:02 Tylenol PO 650 mg Q6H PRN Administration Headache/Fever or Pain Aspirin 81 mg 09/27/19 09:00 09/29/19 08:28 Aspirin Chewable PO 81 mg QAM NORMA Administration Atorvastatin Calcium 20 mg 09/26/19 21:00 09/28/19 20:08 Lipitor PO 20 mg HS NORMA Administration Cholecalciferol 1,000 units 09/27/19 09:00 09/29/19 08:28 Vitamin D3 PO 1,000 units DAILY NORMA Administration Ferrous Sulfate 325 mg 09/27/19 09:00 09/29/19 08:29 Feosol PO 325 mg DAILY NORMA Administration Isosorbide Mononitrate 30 mg 09/29/19 09:00 09/29/19 08:29 Imdur Er PO 30 mg DAILY NORMA Administration Levetiracetam 500 mg 09/29/19 11:30 09/29/19 12:42 Keppra PO 09/29/19 13:30 500 mg NOW NORMA Administration Nitroglycerin 0.4 mg 09/26/19 17:30 09/27/19 23:15 Nitrostat SL 0.4 mg Q5MIN PRN Administration Chest Pain Pantoprazole Sodium 40 mg 09/27/19 09:00 09/29/19 08:29 Protonix PO 40 mg DAILY NORMA Administration Hosp A/P (1) Seizure Code(s): R56.9 - UNSPECIFIED CONVULSIONS Status: Acute (2) Syncope Code(s): R55 - SYNCOPE AND COLLAPSE Status: Acute (3) Asthma Code(s): J45.909 - UNSPECIFIED ASTHMA, UNCOMPLICATED Status: Chronic (4) Dyslipidemia Code(s): E78.5 - HYPERLIPIDEMIA, UNSPECIFIED Status: Chronic (5) Microcytic anemia Code(s): D50.9 - IRON DEFICIENCY ANEMIA, UNSPECIFIED Status: Chronic - Plan PT/OT, out of bed/ambulate 49 year old female consulted for black out spells. Prior history of seizure disorder and was on dilantin for a year. She wants to be back on anticonvulsants because of recurrent spells. MRI brain pending. EEG reviewed and was negative for seizure activity. Negative EEG does not rule out epilepsy. Observe seizure precautions. Ativan 2 mg IV for seizure greater than 2 minutes. Will give her a trial of Keppra to see if it helps with spells of altered awareness. Start Keppra 500 mg twice daily. Follow up in outpatient neurology clinic in 2 months. Plan discussed with the patient and the primary attending Dr. Palmer.
--- NOTE | 2019-09-29 15:52 | MRI ---
MRI BRAIN WITH AND WITHOUT IV CONTRAST: Date: 09/29/2019 HISTORY: CVA, altered mental status. Confusion. Headache. COMPARISON: 05/31/2010. CORRELATION: CT brain of 06/10/2018. FINDINGS: No evidence of infarct, hemorrhage, mass, midline shift, or abnormal extra-axial fluid collections se en. The ventricular size is normal and the basilar cisterns are patent. No abnormal postcontrast enha ncement or restricted diffusion is seen. There is mucosal disease in the paranasal sinuses. IMPRESSION: 1. Normal MRI of the brain. 2. Paranasal sinus disease. RECOMMENDAION: CT scan of the sinuses would be helpful. POS: [facility]
--- NOTE | 2019-09-29 16:27 | PDOC.HOSPP ---
- Subjective Encounter Date: 09/29/19 Encounter Time: 16:00 Subjective: pt sitting in the room moved to [facility]. eeg and MRI pending, - Objective Vital Signs & Weight: Vital Signs (12 hours) Temp Pulse Resp BP BP Pulse Ox 09/29/19 13:00 98.2 F 68 17 120/80 99 09/29/19 12:48 98.6 F 70 16 115/72 100 09/29/19 08:23 98.2 F 69 15 108/65 99 Weight Weight 174 lb I&O: 09/28/19 09/29/19 09/30/19 06:59 06:59 06:59 Intake Total 1520 490 Balance 1520 490 Result Diagrams: 09/26/19 10:12 09/26/19 10:12 Hospitalist ROS - Medication Medications: Active Medications Generic Name Dose Route Start Last Admin Trade Name Freq PRN Reason Stop Dose Admin Acetaminophen 650 mg 09/27/19 14:54 09/27/19 16:02 Tylenol PO 650 mg Q6H PRN Administration Headache/Fever or Pain Aspirin 81 mg 09/27/19 09:00 09/29/19 08:28 Aspirin Chewable PO 81 mg QAM NORMA Administration Atorvastatin Calcium 20 mg 09/26/19 21:00 09/28/19 20:08 Lipitor PO 20 mg HS NORMA Administration Cholecalciferol 1,000 units 09/27/19 09:00 09/29/19 08:28 Vitamin D3 PO 1,000 units DAILY NORMA Administration Ferrous Sulfate 325 mg 09/27/19 09:00 09/29/19 08:29 Feosol PO 325 mg DAILY NORMA Administration Isosorbide Mononitrate 30 mg 09/29/19 09:00 09/29/19 08:29 Imdur Er PO 30 mg DAILY NORMA Administration Nitroglycerin 0.4 mg 09/26/19 17:30 09/27/19 23:15 Nitrostat SL 0.4 mg Q5MIN PRN Administration Chest Pain Pantoprazole Sodium 40 mg 09/27/19 09:00 09/29/19 08:29 Protonix PO 40 mg DAILY NORMA Administration - Exam General Appearance: NAD, awake alert Eye: PERRL ENT: normocephalic atraumatic Neck: supple Heart: RRR, normal peripheral pulses Respiratory: CTAB, normal chest expansion Gastrointestinal: soft, normal bowel sounds Neurological: no focal deficits Hosp A/P - Plan #Syncope with prodromal sxs of palipitations and weakness - syncope possibly could be secondary to an arrhythmia given flutter sensations in her chest. Alternatively she could have seizure given that she has rigidity and postictal confusion during her episodes and has had seizures in the past - she will be monitored on telemetry Ayptical CP - -ruled out for ACS; nl EKG -asa, lipitor and imdur - home regimen -cath in 2010- no obstruction. -cariology will follow up after COVID r/o hx of seizure -no AED as home regimen -pending COVID for workup Prob tension ALBRIGHT - tylenol prn COVID exposure - pt reports 5 coworkers that tested postive for COVID - COVID test ordered Hypertension - continue imdur GERD - continue protonix COVID result - neg LINQ monitor- cardiac workup, - MRI and EEG --pending results home in am timothy mccoy bid.
--- NOTE | 2019-09-29 16:54 | EEG ---
DATE OF SERVICE: 09/29/2019 ATTENDING PHYSICIAN: Malu Anthony MD This EEG was performed using 24-channel [employer] video digital EEG machine with 24-disk electrodes. This was an extended 2 hours 4 minutes of inpatient video EEG recording. Digital analysis of the EEG was done for spike and seizure detection, which revealed no abnormalities. BACKGROUND: The posterior background rhythm is 9-10 hertz. The background rhythm attenuates with eye opening and enhances with eye closure. HYPERVENTILATION: Not performed. PHOTIC STIMULATION: Bioccipital symmetric driving responses observed. SLEEP: Drowsiness and stage 2 sleep are observed. EEG DIAGNOSIS: Normal awake, drowsy, and sleep EEG. Job ID: [id number]
[2019-09-29] MEDS: Nitroglycerin 0.4 MG TAB (25 Tab Bottle) SL PRN (21:25)
[2019-09-29] MEDS: Atorvastatin Calcium 20 MG TAB PO SCH (21:25)
[2019-09-29] MEDS: levETIRAcetam 500 MG TAB PO SCH (21:25)
[2019-09-30 08:20] VITALS: TEMP 97.9
[2019-09-30] MEDS: Ferrous Sulfate 325 MG TAB PO SCH (08:21)
[2019-09-30] MEDS: levETIRAcetam 500 MG TAB PO SCH (08:21)
[2019-09-30] MEDS: Cholecalciferol 1,000 UNITS (25 MCG) TAB PO SCH (08:22)
[2019-09-30] MEDS: Aspirin Chewable 81 MG TAB PO SCH (08:22)
--- NOTE | 2019-09-30 12:00 | PDOC.HOSPP ---
- Subjective Encounter Date: 09/30/19 Subjective: NEUROLOGY PROGRESS NOTE Patient alert, awake and denies any acute complaints in the last 24 hours.Jose Antonio started yesterday which she tolerated well. - Objective Vital Signs & Weight: Vital Signs (12 hours) Temp Pulse Resp BP Pulse Ox 09/30/19 08:17 97.9 F 65 12 107/69 99 09/30/19 03:50 97.8 F 58 L 16 108/63 98 Weight Weight 174 lb I&O: 09/29/19 09/30/19 10/01/19 06:59 06:59 06:59 Intake Total 490 630 Balance 490 630 Result Diagrams: 09/26/19 10:12 09/26/19 10:12 Radiology Reviewed by me: Yes EKG Reviewed by me: Yes Hospitalist ROS - Review of Systems Constitutional: denies: fever, chills, sweats, weakness, malaise, other Eyes: denies: pain, vision change, conjunctivae inflammation, eyelid inflammation, redness, other ENT: denies: ear pain, ear discharge, nose pain, nose discharge, nose congestion , mouth pain, mouth swelling, throat pain, throat swelling, other Respiratory: denies: cough, dry, shortness of breath, hemoptysis, SOB with excertion, pleuritic pain, sputum, wheezing, other Cardiovascular: denies: chest pain, palpitations, orthopnea, paroxysmal noc. dyspnea, edema, light headedness, other Gastrointestinal: denies: nausea, vomiting, abdominal pain, diarrhea, constipation, melena, hematochezia, other Genitourinary: denies: dysuria, frequency, incontinence, hematuria, retention, other Musculoskeletal: denies: neck pain, shoulder pain, arm pain, back pain, hand pain, leg pain, foot pain, other Skin: denies: rash, lesions, nadege, bruising, other - Medication Medications: Active Medications Generic Name Dose Route Start Last Admin Trade Name Freq PRN Reason Stop Dose Admin Acetaminophen 650 mg 09/27/19 14:54 09/27/19 16:02 Tylenol PO 650 mg Q6H PRN Administration Headache/Fever or Pain Aspirin 81 mg 09/27/19 09:00 09/30/19 08:22 Aspirin Chewable PO 81 mg QAM NORMA Administration Atorvastatin Calcium 20 mg 09/26/19 21:00 09/29/19 21:25 Lipitor PO 20 mg HS NORMA Administration Cholecalciferol 1,000 units 09/27/19 09:00 09/30/19 08:22 Vitamin D3 PO 1,000 units DAILY NORMA Administration Ferrous Sulfate 325 mg 09/27/19 09:00 09/30/19 08:21 Feosol PO 325 mg DAILY NORMA Administration Isosorbide Mononitrate 30 mg 09/29/19 09:00 09/30/19 08:22 Imdur Er PO 30 mg DAILY NORMA Administration Levetiracetam 500 mg 09/29/19 21:00 09/30/19 08:21 Keppra PO 500 mg BID NORMA Administration Nitroglycerin 0.4 mg 09/26/19 17:30 09/29/19 21:25 Nitrostat SL 0.4 mg Q5MIN PRN Administration Chest Pain Pantoprazole Sodium 40 mg 09/27/19 09:00 09/30/19 08:22 Protonix PO 40 mg DAILY NORMA Administration - Exam General Appearance: awake alert Eye: PERRL ENT: normocephalic atraumatic, no oropharyngeal lesions Neck: supple Heart: RRR Respiratory: CTAB Gastrointestinal: soft Extremities: no cyanosis Skin: normal turgor Neurological: cranial nerve grossly intact Musculoskeletal: normal tone Psychiatric: normal affect, normal behavior, A&O x 3, oriented to person, oriented to place, oriented to time Hosp A/P (1) Seizure Code(s): R56.9 - UNSPECIFIED CONVULSIONS Status: Acute (2) Syncope Code(s): R55 - SYNCOPE AND COLLAPSE Status: Acute (3) Asthma Code(s): J45.909 - UNSPECIFIED ASTHMA, UNCOMPLICATED Status: Chronic (4) Dyslipidemia Code(s): E78.5 - HYPERLIPIDEMIA, UNSPECIFIED Status: Chronic (5) Microcytic anemia Code(s): D50.9 - IRON DEFICIENCY ANEMIA, UNSPECIFIED Status: Chronic - Plan 49 year old female consulted for black out spells. Prior history of seizure disorder and was on dilantin for a year. She wanted to be back on anticonvulsants because of recurrent spells. Keppra started yesterday which she tolerated well without any side-effects. MRI brain reviewed which was negative for acute process. EEG reviewed and was negative for seizure activity. Negative EEG does not rule out epilepsy. Observe seizure precautions. Ativan 2 mg IV for seizure greater than 2 minutes. Trial of Keppra started yesterday to see if it helps with spells of altered awareness.She tolerated the keppra well. Continue Keppra 500 mg twice daily. Follow up in outpatient neurology clinic in 2 months. Plan discussed with the patient and the primary attending Dr. Palmer.
[2019-09-30 12:01] VITALS: BP 107/68
--- NOTE | 2019-09-30 13:52 | DIS ---
DATE OF ADMISSION: 09/26/2019 DATE OF DISCHARGE: 09/30/2019 DISCHARGE DIAGNOSES: 1. Syncope with prodromal symptoms, palpitations, and weakness. 2. Atypical chest pain, ruled out acute coronary syndrome and normal EKG and cath in 2010 without any obstruction. 3. History of seizure. Started on Keppra during this hospitalization as she was dropped the antiepileptics in the past. 4. Probable tension headache. 5. COVID exposure at work place and COVID tested negative. 6. Gastroesophageal reflux disease. 7. Hypertension. DISCHARGE MEDICATIONS: She will continue with her home medications. The only new addition is Keppra 500 mg twice a day. PHYSICAL EXAMINATION: VITAL SIGNS: On the day of discharge, temperature 97.9, pulse 62, blood pressure 107/68, and saturating 99% on room air. GENERAL: The patient is alert, oriented. She is comfortable, talking to friends over the phone. Discharge plan discussed and she is agreeable. CARDIOVASCULAR: Regular rate and rhythm without murmurs, rubs, or gallops. LUNGS: Clear to auscultation bilaterally without wheezing, rales, or rhonchi. ABDOMEN: Soft, nontender, nondistended. Good bowel sounds. EXTREMITIES: Without any pitting edema or rash. IMAGING STUDIES: Brain MRA is negative for any MEDIA AID abnormality. She has some paranasal sinus disease. Electroencephalogram is negative for any epileptiform discharges. CONSULTS: 1. Cardiology with Dr. Orozco. 2. Neurologist, Dr. Anthony. HOSPITAL COURSE: Please refer to history and physical and daily progress note for more details. Briefly, a 49-year-old female with a history of recurrent syncope and seizure, presented with chest pain. It turned out to be atypical chest pain, ruled out for acute coronary syndrome. Regarding her presyncope/syncope, she had recent normal stress test done in the outpatient clinic at Dr. Lipscomb's office. Cardiology evaluated her and decided with a normal stress test. She does not need any further cardiac workup. Cholangiography would be appropriate given her atypical chest symptoms. However, the patient deferred that option. Regarding her seizure episodes in the past, there was concern whether syncope and seizure are related. Imaging studies appeared negative . She had some recurrent blackout spells. Because of that, she was restarted back on Keppra 500 mg b.i.d. EEG was negative for seizure activity but epilepsy is not ruled out completely. She will follow up with Dr. Goode in 2 to 4 weeks' time. She is stable to be discharged home today. DISCHARGE INSTRUCTIONS: Activity as tolerated. I did talk to her about seizure precautions including driving. The patient states that her is a retired person, and he would be able to drive her back and forth, which is [address] to her work. With this counseling and workup, she is ready to be discharged. Follow up with the PCP in 1 week. Discharge time took over 35 minutes. Job ID: [id number] MTDD
== END 2019-09-30 12:39 | disposition home or self-care (01) ==
LOC: ERS 09:44 → 2SW 12:53 → 2NO 09-29 13:01
PROVIDERS: ADMIT Internal Medicine; ATTEND Internal Medicine
DX: R55 Syncope and collapse (principal); R07.89 Other chest pain; K21.9 Gastro-esophageal reflux disease without esophagitis; I10 Essential (primary) hypertension; E78.00 Pure hypercholesterolemia, unspecified; J45.909 Unspecified asthma, uncomplicated; Z20.828 Contact with and (suspected) exposure to other viral communicable diseases; Z79.82 Long term (current) use of aspirin; Z79.899 Other long term (current) drug therapy; Z88.5 Allergy status to narcotic agent
CPT/HCPCS: 36415; 70553; 71045; 80053; 84484; 85025; 87635; 93005; 93306; 95712; 95816; 95819; 95957; G0378; U0003

== ENCOUNTER 2020-03-25 23:44 | Emergency (ER) | payer OTHER ==
[2020-03-26 00:20] LABS: #Basophils 0.1 thou/uL (0.0-0.2); #Eosinphils 0.3 thou/uL (0.0-0.7); #Lymphocytes 3.4 thou/uL (1.20-3.40); #Monocytes 0.6 thou/uL (0.11-0.59); #Neutrophils 4.4 thou/uL (1.40-6.50); %Basophils 0.6 % (0.0-1.0); %Eosinophils 3.3 % (0.0-10.0); %Lymphocytes 39.2 % (21.0-51.0); %Monocytes 6.4 % (0.0-10.0); %Neutrophils 50.4 % (42.0-75.0); Hemoglobin 12.5 g/dL (12.0-16.0); Mean Corpuscular HGB CONC 32.9 g/dL (32.0-36.0); Mean Corpuscular Hemoglobin 23.9 pg (27.0-31.0); Mean Corpuscular Volume 72.8 fL (78.0-98.0); Mean Platelet Volume 8.4 fL (7.4-10.4); Platelet Count 287 thou/uL (130-400); RBC Distribution Width 15.3 % (11.5-14.5); Red Blood Cell (RBC) Count 5.22 mill/uL (4.20-5.40); White Blood Cell (WBC) Count 8.7 thou/uL (4.8-10.8)
[2020-03-26 00:41] LABS: ALT (SGPT) 24 U/L (8-55); AST (SGOT) 26 U/L (5-34); Albumin 4.3 g/dL (3.5-5.0); Alkaline Phosphatase 85 U/L (40-110); Anion Gap 15 mmol/L (10-20); BUN (Urea Nitrogen) 10 mg/dL (9.8-20.1); Bilirubin, Total 0.4 mg/dL (0.2-1.2); Calc. Creatinine Clearance 0 mL/min (70-130); Calcium 9.7 mg/dL (7.8-10.44); Carbon Dioxide 27 mmol/L (22-29); Chloride 103 mmol/L (98-107); Globulin 3.7 g/dL (2.4-3.5); Glucose 105 mg/dL (70-105); Potassium 4.4 mmol/L (3.5-5.1); Sodium 141 mmol/L (136-145)
[2020-03-26] MEDS ORDERED: Promethazine HCl 25 MG/ML VIAL ONE (00:43)
[2020-03-26] MEDS ORDERED: diphenhydrAMINE 50 MG/ML VIAL ONE (00:43)
--- NOTE | 2020-03-26 07:58 | RAD ---
XR Chest 1 View Portable HISTORY: Chest pain COMPARISON: 09/26/2019 FINDINGS: The heart size is normal. The lungs are without focal areas of consolidation, pneumothorax or pleural effusions. IMPRESSION: No radiographic evidence of acute cardiopulmonary process.
== END 2020-03-26 02:18 | disposition home or self-care (01) ==
LOC: ERS 23:44
DX: R51.9 Headache, unspecified (principal); R00.2 Palpitations; R07.9 Chest pain, unspecified; I10 Essential (primary) hypertension; E78.5 Hyperlipidemia, unspecified; J45.909 Unspecified asthma, uncomplicated; E78.00 Pure hypercholesterolemia, unspecified; Z79.51 Long term (current) use of inhaled steroids; Z79.82 Long term (current) use of aspirin; Z79.899 Other long term (current) drug therapy
CPT/HCPCS: 71045; 80053; 83880; 84443; 84484; 85025; 85379; 93005; 96374; 96375; J1200; J2550

== ENCOUNTER 2020-05-12 07:44 | Outpatient (CLI) | payer OTHER ==
--- NOTE | 2020-05-12 11:22 | MMO ---
Bilateral MAMMO Bilat Screen [facility]. CLINICAL HISTORY: Patient is 50 years old and is seen for screening. The patient has the following family history of breast cancer: maternal aunt. The patient has no personal history of cancer. The patient has a history of Stereotatic Biopsy in 2018. VIEWS: The views performed were: bilateral craniocaudal with tomosynthesis and bilateral mediolateral oblique with tomosynthesis. FILMS COMPARED: The present examination has been compared to prior imaging studies performed at [facility] on 03/07/2016, 03/28/2017, 04/09/2017 and 05/02/2018. This study has been interpreted with the assistance of computer-aided detection. MAMMOGRAM FINDINGS: There are scattered fibroglandular densities. There are no suspicious masses, suspicious calcifications, or new areas of architectural distortion. IMPRESSION: THERE IS NO MAMMOGRAPHIC EVIDENCE OF MALIGNANCY. A ROUTINE FOLLOW-UP MAMMOGRAM IN 1 YEAR IS RECOMMENDED. THE RESULTS OF THIS EXAM WERE SENT TO THE PATIENT. ACR BI-RADS Category 1 - Negative MAMMOGRAPHY NOTE: 1. A negative mammogram report should not delay a biopsy if a dominant of clinically suspicious mass is present. 2. Approximately 10% to 15% of breast cancers are not detected by mammography. 3. Adenosis and dense breasts may obscure an underlying neoplasm. Reported by: HITESH SEALS MD Electonically Signed: [id number]
== END 2020-05-12 07:45 | disposition home or self-care (01) ==
LOC: BICMAMMO 07:44
PROVIDERS: ATTEND Nurse Practitioner Family
DX: Z12.31 Encounter for screening mammogram for malignant neoplasm of breast (principal); Z80.3 Family history of malignant neoplasm of breast
CPT/HCPCS: 77063; 77067

== ENCOUNTER 2021-01-12 21:34 | Emergency (ER) | payer OTHER ==
[2021-01-13 11:52] LABS: SARS-CoV-2 PCR by NAA Not Detected (NotDetected)
== END 2021-01-12 22:06 | disposition home or self-care (01) ==
LOC: ERS 21:34
DX: J45.901 Unspecified asthma with (acute) exacerbation (principal); E78.5 Hyperlipidemia, unspecified; E78.00 Pure hypercholesterolemia, unspecified; E11.9 Type 2 diabetes mellitus without complications; Z20.822 Contact with and (suspected) exposure to COVID-19; Z79.82 Long term (current) use of aspirin; Z79.899 Other long term (current) drug therapy
CPT/HCPCS: 99283; U0003; U0005

== ENCOUNTER 2021-06-24 07:54 | Outpatient (CLI) | payer OTHER | END 2021-06-24 07:55 | disposition home or self-care (01) | LOC: BICMAMMO 07:54 | PROVIDERS: ATTEND Nurse Practitioner Family | DX: R92.2 Inconclusive mammogram (principal) | CPT/HCPCS: G0279 ==